=== PATIENT | female | born 1945 | race Caucasian/White ===

== ENCOUNTER 2016-03-23 12:21 | Inpatient (IN) | payer OTHER ==
[2016-03-23 14:03] LABS: BASO% 0.1 % (0.0-0.8); EOS# 0.01 X1000 (0.0-0.7); EOS% 0.1 % (0.0-10.0); HEMATOCRIT 24.4 % (37.0-47.0); HEMOGLOBIN 7.9 g/dL (12.0-16.0); IMM GRAN# 0.02 X1000 (0.0-0.04); IMM GRAN% 0.2 % (0.0-0.5); LYMPH# 0.15 X1000 (1.2-3.4); LYMPH% 1.2 % (20.5-51.1); MCH 31.7 PG (27-31); MCHC 32.4 g/dL (33-37); MONO# 0.45 X1000 (0.11-0.59); MONO% 3.5 % (1.7-9.3); MPV 10.2 FL (7.4-10.4); NEUT% 94.9 % (42.2-75.2); PLT 229 X1000 (130-400); RBC 2.49 XMIL (4.2-5.4)
[2016-03-23 14:04] LABS: MANUAL DIFF NEEDED? NO
--- NOTE | 2016-03-23 14:17 | PROVIDER DOCUMENTATION ---
HPI-General Adult - General Chief Complaint: Shortness of Breath Stated Complaint: SOB Time Seen by Provider: 03/23/16 12:50 Source: patient, family Allergies/Adverse Reactions: Patient Allergies Allergy/AdvReac Type Severity Reaction Status Date / Time celecoxib [From Celebrex] Allergy HIVES Verified 03/23/16 13:27 Home Medications: Calcium Carb/Vit D3/Minerals [Calcium 1,200 mg Tablet Chew] 1 each PO DAILY 10/29 Cholecalciferol (Vitamin D3) [Vitamin D3] 2,000 unit PO DAILY 05/23/13 Citalopram [Celexa] 20 mg PO DAILY 05/23/13 Digoxin [Lanoxin] 125 mcg PO DIRECTED 05/23/13 Spironolactone 25 mg PO QHS 05/23/13 Carvedilol 12.5 mg PO BID 02/09/14 Pitavastatin [Livalo] 2 mg PO DAILY 02/09/14 Ranolazine E.r. [Ranexa] 500 mg PO BID 02/09/14 Cyanocobalamin (Vitamin B-12) [Vitamin B-12] 1,000 mcg PO DIRECTED 04/28/15 Potassium Chloride 20 meq PO DAILY 04/28/15 Sacubitril/Valsartan [Entresto 24 mg-26 mg Tablet] 1 mg PO BID 05/27/15 - History of Present Illness -Gen Adult Nature of Presenting Problems: Pt had ICD placed a few weeks ago and initially did well but ultimately had large hemorrhage in operative site. Eloquis was discontinued and she has not been on anticoagulant therapy recently. She became lightheaded today and was sent to ER by her fringe knotter. Location of Pain/Injury: reports: upper body Pain Radiation: reports: no radiation Onset/Duration: reports: other (see HPI) Associated Symptoms: reports: denies symptoms Review of Systems - Adult - REVIEW OF SYSTEMS - ADULT Constitutional: reports: fatique Eyes: reports: no symptoms reported Ears, Nose, Mouth & Throat: reports: no symptoms reported Cardiovascular: reports: irregular heart rate, syncope, other (ICD) Respiratory: reports: cough, dyspnea on exertion Gastrointestinal: reports: no symptoms reported Musculoskeletal: reports: no symptoms reported Integumentary: reports: no symptoms reported Neurological: reports: no symptoms reported Psychiatric: reports: no symptoms reported Endocrine: reports: no symptoms reported Hematologic/Lymphatic: reports: no symptoms reported Allergic/Immunologic: reports: no symptoms reported Past History - Adult - PAST MEDICAL HISTORY-ADULT Major Childhood Illnesses: reports: denies history Cardiovascular: reports: cardiac disease, A-Fib, HTN, hyperlipidemia, pacemaker Psychiatric: reports: anxiety - PRIOR SURGERIES/PROCEDURES Surgical/Procedure History: reports: appendectomy, CABG, cardiac stent (x4), pacemaker (defib), tonsillectomy - IMMUNIZATION STATUS Childhood Immunizations: See Nurse Assessment Flu Vaccine: See Nurse Assessment - SOCIAL HISTORY Smoking: cigarettes, less than 1 pack/day Substance Use: none/never Living Situation: family Occupation: retired Physical Exam-General - CONSTITUTIONAL General Appearance: appears well - EYES Eyes: PERRL/EOMI, other (pale) - HEAD, EARS, NOSE, MOUTH & THROAT HENMT: normocephalic/atraumatic, moist mucous membranes - NECK Neck: full range of motion - RESPIRATORY Respiratory: lungs clear - CARDIOVASCULAR Cardiovascular: normal peripheral pulses, bradycardia - CHEST (BREASTS) Chest/Breast: mass/lump noted (very large hematomaa in perioperative site and left breast). negative: no masses/lumps, no tenderness Progress - PLAN OF CARE/RESULTS Progress/Plan/Lab Results: Laboratory Tests 03/23/16 13:45 WBC 12.92 H RBC 2.49 L Hgb 7.9 L Hct 24.4 L MCV 98.0 MCH 31.7 H MCHC 32.4 L RDW Std Deviation 13.6 Plt Count 229 MPV 10.2 Immature Gran % (Auto) 0.2 Neut % (Auto) 94.9 H Lymph % (Auto) 1.2 L [place] % (Auto) 3.5 Eos % (Auto) 0.1 Baso % (Auto) 0.1 Immature Gran # (Auto) 0.02 Neut # (Auto) 12.28 H Lymph # (Auto) 0.15 L [place] # (Auto) 0.45 Eos # (Auto) 0.01 Baso # (Auto) 0.01 Segmented Neutrophils Not Reportable Orders Category Date Time Status Transfuse .Give-Transfuse Care 03/23/16 14:06 Active CBC WITH ELECTRONIC DIFF [HEME] Stat Lab 03/23/16 13:45 Completed TYPE & SCREEN [BBK] Stat Lab 03/23/16 13:45 Received Vital Signs Temp Pulse Resp BP Pulse Ox 03/23/16 12:26 98.7 F 63 20 133/46 99 celecoxib [From Celebrex] Allergy (Verified 03/23/16 13:27) HIVES Calcium Carb/Vit D3/Minerals [Calcium 1,200 mg Tablet Chew] 1 each PO DAILY 10/29 Cholecalciferol (Vitamin D3) [Vitamin D3] 2,000 unit PO DAILY 05/23/13 Citalopram [Celexa] 20 mg PO DAILY 05/23/13 Digoxin [Lanoxin] 125 mcg PO DIRECTED 05/23/13 Spironolactone 25 mg PO QHS 05/23/13 Furosemide [Lasix] 40 mg PO BID #60 tablet 05/26/13 Carvedilol 12.5 mg PO BID 02/09/14 Pitavastatin [Livalo] 2 mg PO DAILY 02/09/14 Ranolazine E.r. [Ranexa] 500 mg PO BID 02/09/14 Warfarin [Coumadin] 7.5 mg PO DIRECTED #0 05/30/14 Cyanocobalamin (Vitamin B-12) [Vitamin B-12] 1,000 mcg PO DIRECTED 04/28/15 Potassium Chloride 20 meq PO DAILY 04/28/15 Hydrocodone/APAP 5 mg/325 mg [[place]-5] 1 each PO Q4H PRN #12 tablet 05/27/15 Sacubitril/Valsartan [Entresto 24 mg-26 mg Tablet] 1 mg PO BID 05/27/15 Hydrocodone/Acetaminophen [[place] 5-325 Tablet] 1 each PO Q6H PRN PRN #12 tablet 06/18/15 Laboratory 03/23/16 13:45 WBC 12.92 H RBC 2.49 L Hgb 7.9 L Hct 24.4 L MCV 98.0 MCH 31.7 H MCHC 32.4 L RDW Std Deviation 13.6 Plt Count 229 MPV 10.2 Immature Gran % (Auto) 0.2 Neut % (Auto) 94.9 H Lymph % (Auto) 1.2 L [place] % (Auto) 3.5 Eos % (Auto) 0.1 Baso % (Auto) 0.1 Immature Gran # (Auto) 0.02 Neut # (Auto) 12.28 H Lymph # (Auto) 0.15 L [place] # (Auto) 0.45 Eos # (Auto) 0.01 Baso # (Auto) 0.01 Segmented Neutrophils Not Reportable Departure - Departure Time of Disposition Order: 14:21 DIAGNOSIS: Anemia Disposition: ADMITTED INPATIENT 09 Certified Medical Emergency: Emergent Condition: Good
[2016-03-23 15:23] LABS: ALBUMIN 3.7 g/dL (3.5-5.0); CALCIUM 8.5 mg/dL (8.8-10.2); POTASSIUM 4.2 mmol/L (3.5-5.1); TOTAL BILIRUBIN 0.78 mg/dL (0.20-1.00); TOTAL PROTEIN 5.8 g/dL (6.3-8.3)
[2016-03-23] MEDS ORDERED: NON-FORMULARY MED (Cyanocobalamin (Vitamin B-12) [Vitamin B-12] 1,000 MCG) PO SCH (19:28)
[2016-03-23] MEDS ORDERED: ZOFRAN IV PRN (19:28)
--- NOTE | 2016-03-23 19:51 | HISTORY AND PHYSICAL ---
PRIMARY CARE PROVIDER: Dr. Fabián Shore. CHIEF COMPLAINT: Left chest hematoma with complaints of nausea, dizziness and weakness with shortness of breath this morning. HISTORY OF PRESENT ILLNESS: Ms Treviño is a 70-year-old female with a history of coronary artery disease status post CABG in , paroxysmal atrial fibrillation with a pacemaker placed, she has had 3 generator changes, history of congestive heart failure. On 02/21/2016 Ms. Treviño had a generator change by Dr. Mejia Batista located at [facility] in [place]. There were no complications from the procedure. She was resumed on her Eliquis 3 or 4 days after surgery as routinely done. Then again on March 14 she developed a huge hematoma returned to [facility], they ruled out infection, they had pressure held for 3 days with a pressure dressing. She does have skin tears that are healing from the pressure dressing tape, they said the swelling went down quite a bit. On 03/18/2016 she was discharged. She never received blood while during her stay at [facility]. She and her went to see Dr. aBtista in the office yesterday and there were no changes to her medications and then this morning she woke up nauseated, dizzy and weak with shortness of breath. She never passed out and Dr. Batsita told them to come to the most local hospital given the risk of with bad weather outside. Workup revealed a hemoglobin and hematocrit of 7.[address] Batista discussed the patient's status with the physician in the ER and the decision was made to give 2 packed red blood cells and so will keep her for observation for that. Dr. Batista also said not to explore the hematoma. During assessment I measured the hematoma at 6 x 8 inches and used a skin marker to draw a salt river around the hematoma edges. She is still off of Eliquis and has been off Eliquis since February so DVT prophylaxis will only be with SCDs. PAST MEDICAL HISTORY: Coronary artery disease, paroxysmal atrial fibrillation with pacemaker and anticoagulation therapy, congestive heart failure, uterine and vulva cancer, diabetes type 2. SURGICAL HISTORY: CABG in 1990, tonsillectomy, appendectomy, pacemaker implantation with 3 generator changes with the most recent 1 being 02/21/2016 and cardiac stenting x4. SOCIAL HISTORY: Quit smoking in 1987, smoked 1-2 packs of cigarette per day for 20+ years. Denies alcohol or illicit drug use. Lives at home with her . FAMILY HISTORY: Positive for lung cancer, coronary artery disease. ALLERGIES: CELEBREX. HOME MEDICATIONS: Calcium carbonate, vitamin D3 minerals 1 tab daily, Celexa 20 mg p.o. daily, vitamin D3 2000 units p.o. daily, digoxin 125 mcg p.o. daily, Coreg 12.5 mg p.o. twice daily, 2 mg p.o. daily, Ranexa 500 mg p.o. twice daily, vitamin B12 1000 mcg, Entresto valsartan 1 mg p.o. twice daily, Lasix 40 mg p.o. twice daily. REVIEW OF SYSTEMS: Fourteen-point review of systems were complete and all were negative except for those mentioned above HPI. LABORATORY DATA: White blood cells 12,000, hemoglobin 7.8, hematocrit 24.4, platelet count 229,000. Sodium 130, potassium 4.2, BUN 19, creatinine is 1.6, glucose 185, calcium 8.5, total bilirubin 0.78, AST 19, ALT 7, total protein 5.8. IMAGING: None. PHYSICAL EXAMINATION: VITAL SIGNS: Temperature 98.7 degrees, heart rate 60 paced, respiratory rate 21, blood pressure 119/53, O2 saturation 100% on room air, 5 feet 3 inches tall, 165 pounds, BMI 29.2. GENERAL: Ms Treviño is a 70-year-old female no acute distress. Able to answer all questions appropriately. HEENT: Atraumatic, normocephalic. Pupils equal, round, reactive to light. Extraocular movements intact. CARDIOVASCULAR AND CHEST: Irregularly irregular rate, no rubs, gallops or murmurs. There is a large 6 x 8 inch hematoma over the left chest pacemaker site. PULMONARY: Clear to auscultate. Bilateral breath sounds. No accessory muscle use or work of breathing noted. GI: Soft, nontender, nondistended. Positive bowel sounds x4. NEURO: A and O x4. Moves all extremities equally. EXTREMITIES: No edema noted, +2 dorsalis and radial pulses. SKIN: Warm, dry, intact except for skin tear between her breasts where she had pressure dressing tape. There is a 6 x 8 inch hematoma over left chest pacemaker site with bruising in different stages and bruising down the left inner aspect of her arm. ASSESSMENT AND PLAN: 1. Left acute blood loss anemia secondary to hematoma post permanent pacemaker generator change, hemoglobin, hematocrit 7.9 and 24.4, blood transfusion was discussed between her power engineer who did the generator change, Dr. Batista and the ER physician and 2 units of blood was ordered for transfusion. Will repeat hemoglobin, hematocrit in the morning. Continue to hold anticoagulant. 2. Left chest hematoma 6 x 8 inches large. Will do chest CT to evaluate. Apparently per Dr. Lam the left subclavian hematoma is to not be explored surgically. 3. Coronary artery disease status post coronary artery bypass graft with stents currently on hold with anticoagulant. Will continue with her beta oneil. 4. Congestive heart failure. Continue digitalis, beta oneil. Continue home medications. 5. Paroxysmal atrial fibrillation holding on anticoagulation. Rate is controlled. 6. Diabetes type 2. Will do pattern blood glucoses and insulin per low-dose protocol. 7. Deep venous thrombosis prophylaxis. SCDs. 8. Gastrointestinal prophylaxis. Proton pump inhibitor. Dictated by LANNY Bales for Derrick Kay MD
[2016-03-23] MEDS: TYLENOL PO PRN (20:32)
[2016-03-23] MEDS: LASIX PO SCH (20:32)
[2016-03-23] MEDS: RANEXA PO SCH (20:32)
[2016-03-23] MEDS: COREG PO SCH (20:33)
[2016-03-23] MEDS ORDERED: NS 500 ML ONE (20:43)
[2016-03-23] MEDS: HUMULIN R SUBQ SCH (22:56)
[2016-03-23] MEDS: ENTRESTO 24 MG-26 MG TABLET PO SCH (23:08)
[2016-03-24] MEDS: TYLENOL PO PRN ×3 (02:05→20:33)
[2016-03-24] MEDS: PRILOSEC PO SCH (06:03)
[2016-03-24] MEDS: HUMULIN R SUBQ SCH ×4 (06:20→21:37)
[2016-03-24 07:02] LABS: INR 1.09; PROTIME 11.6 Seconds (9.2-11.7); PTT 25.1 Seconds (22.0-36.0)
[2016-03-24 07:06] LABS: ALBUMIN 3.4 g/dL (3.5-5.0); CALCIUM 8.6 mg/dL (8.8-10.2); MAGNESIUM 2.1 mg/dL (1.5-2.7); POTASSIUM 3.5 mmol/L (3.5-5.1); TOTAL BILIRUBIN 0.91 mg/dL (0.20-1.00); TOTAL PROTEIN 5.7 g/dL (6.3-8.3)
[2016-03-24 07:15] LABS: BASO% 0.2 % (0.0-0.8); EOS# 0.01 X1000 (0.0-0.7); EOS% 0.1 % (0.0-10.0); HEMATOCRIT 30.1 % (37.0-47.0); HEMOGLOBIN 9.8 g/dL (12.0-16.0); IMM GRAN# 0.06 X1000 (0.0-0.04); IMM GRAN% 0.6 % (0.0-0.5); LYMPH# 0.34 X1000 (1.2-3.4); LYMPH% 3.3 % (20.5-51.1); MANUAL DIFF NEEDED? YES; MCH 30.4 PG (27-31); MCHC 32.6 g/dL (33-37); MCV 93.5 FL (81-99); MONO# 0.64 X1000 (0.11-0.59); MONO% 6.3 % (1.7-9.3); MPV 10.2 FL (7.4-10.4); NEUT% 89.5 % (42.2-75.2); PLT 215 X1000 (130-400); RBC 3.22 XMIL (4.2-5.4)
[2016-03-24 07:24] LABS: BANDS 4 % (0-1); LYMPHS 7 % (21-51); MONO 9 % (1-9)
[2016-03-24] MEDS: OSCAL 500 + D PO SCH (10:16)
[2016-03-24] MEDS: ENTRESTO 24 MG-26 MG TABLET PO SCH ×2 (10:16→20:32)
[2016-03-24] MEDS: COREG PO SCH ×2 (10:16→20:32)
[2016-03-24] MEDS: LIVALO PO SCH (10:16)
[2016-03-24] MEDS: LASIX PO SCH ×2 (10:16→20:32)
[2016-03-24] MEDS: CELEXA PO SCH (10:16)
[2016-03-24] MEDS: VITAMIN D PO SCH (10:17)
[2016-03-24] MEDS: RANEXA PO SCH ×2 (10:17→20:32)
[2016-03-24 10:44] LABS: IRON SATURATION 7 %; TIBC 255 ug/dL; TOTAL IRON 18 ug/dL (49-151); UNBOUND IRON 237 ug/dL (112-346)
--- NOTE | 2016-03-24 12:36 | Diag Imaging Result Document ---
PROCEDURE NAME: CHEST-2 VIEWS - 03/24/2016 PA AND LATERAL RADIOGRAPH OF THE CHEST: COMPARISON: 06/18/2015. FINDINGS: The lungs appear grossly clear. No large effusion is identified. There is minimal blunting of the posterior costophrenic angles which could indicate a trace effusion. Cardiac silhouette is mildly prominent. Median sternotomy wires are noted. There is a stable implanted defibrillator/pacemaker on the left. IMPRESSION: Stable cardiomegaly and questionable trace effusions at the posterior costophrenic angles.
[2016-03-24] MEDS ORDERED: VENOFER IV ONE (14:38)
[2016-03-24] MEDS ORDERED: VENOFER 200 MG in NS 150 ML IV ONE (16:00)
--- NOTE | 2016-03-24 16:15 | PROGRESS NOTE ---
DATE: 03/24/2016 SUBJECTIVE: The patient is feeling fine, feeling more energetic and definitely not tired any more. OBJECTIVE: Vital signs: Temperature is 98.2, heart rate 59, respiratory rate 18, blood pressure 105/42, O2 saturation is 94% on room air. General: This is a 70-year-old female lying in bed, in no acute distress. HEENT: Head is normocephalic and atraumatic. Anicteric sclerae. Pale conjunctivae. Neck: Supple. No JVD noted. No carotid bruit. No lymphadenopathy. Cardiovascular: Regular rate and rhythm. There is a large 6 to 8 inch hematoma over the left chest in the pacemaker site and no murmurs or rubs. Pulmonary: Clear bilaterally to auscultation. No work of breathing or using accessory muscles. Abdomen: Soft, nontender. Bowel sounds present. No organomegaly. Extremities: No cyanosis, clubbing or edema. Peripheral pulses present. Neurologic: The patient is alert and oriented x3, able to move all 4 extremities. Cranial nerves II through XII grossly normal. DIAGNOSTIC DATA: White blood cell count 10.18, hemoglobin 9.8, hematocrit 30.1, platelets 215. BMP is unremarkable except for creatinine of 1.9. ASSESSMENT AND PLAN: 1. Anemia of blood loss, most likely secondary to hematoma in the thoracic wall. The patient has received 2 units of blood, and hemoglobin is now 9.8. I think that is the reason this patient has anemia. I discussed with Cardiology, and he does not recommend any drainage because of the high risk of infection. At this time, we are waiting for results of old records from the hospital to see what CT of the chest wall and ultrasound of the soft tissue shows. 2. Coronary artery disease. The patient is not complaining of any chest pain. 3. Congestive heart failure, stable. The patient is not having any exacerbation. Aware. We are going to continue with the same home medications. 4. Paroxysmal atrial fibrillation. Rate is controlled. 5. Diabetes type 2. The patient is on sliding scale insulin. Overall this patient is doing good, and we have ordered some iron studies that revealed low iron. At this time, we are going to provide 1 dose of Venofer 200 mg IV, and we have ordered also occult blood stool test. After this patient has this medication transfused and this exam returns negative, we may discharge the patient tomorrow.
[2016-03-24 21:28] LABS: URINE CULTURE NEEDED? NO; URINE MICRO REVIEW NEEDED? NO; URINE SOURCE CLEAN CATCH
[2016-03-24 21:32] LABS: BILIRUBIN URINE NEGATIVE (NEGATIVE); BLOOD URINE SMALL (NEGATIVE); COLOR YELLOW; GLUCOSE URINE NEGATIVE (NEGATIVE); LEUKOCYTES URINE NEGATIVE (NEGATIVE); NITRITE URINE NEGATIVE (NEGATIVE); PH URINE 5.5; PROTEIN URINE TRACE mg/dL (NEGATIVE); SP GRAVITY URINE 1.013; TURBIDITY URINE HAZY (CLEAR); UROBILINOGEN URINE NORMAL (NORMAL)
[2016-03-24 21:34] LABS: UR EPITHELIAL CELLS <10 /HPF (<10); URINE BACTERIA NEGATIVE /HPF; URINE RBC <10 /HPF (<10); URINE WBC <10 /HPF (<10)
[2016-03-25] MEDS: TYLENOL PO PRN (04:53)
[2016-03-25] MEDS: HUMULIN R SUBQ SCH ×2 (06:06→11:40)
[2016-03-25] MEDS: PRILOSEC PO SCH (06:07)
[2016-03-25 06:55] LABS: MANUAL DIFF NEEDED? NO
[2016-03-25 07:04] LABS: BASO% 0.3 % (0.0-0.8); EOS# 0.13 X1000 (0.0-0.7); HEMATOCRIT 32.7 % (37.0-47.0); HEMOGLOBIN 10.5 g/dL (12.0-16.0); IMM GRAN# 0.04 X1000 (0.0-0.04); IMM GRAN% 0.6 % (0.0-0.5); LYMPH# 0.42 X1000 (1.2-3.4); LYMPH% 6.5 % (20.5-51.1); MCHC 32.1 g/dL (33-37); MCV 93.4 FL (81-99); MONO# 0.69 X1000 (0.11-0.59); MONO% 10.7 % (1.7-9.3); MPV 10.4 FL (7.4-10.4); NEUT% 79.9 % (42.2-75.2); PLT 197 X1000 (130-400)
[2016-03-25 07:24] LABS: ALBUMIN 3.3 g/dL (3.5-5.0); CALCIUM 8.5 mg/dL (8.8-10.2); MAGNESIUM 2.1 mg/dL (1.5-2.7); POTASSIUM 3.3 mmol/L (3.5-5.1); TOTAL BILIRUBIN 0.8 mg/dL (0.20-1.00); TOTAL PROTEIN 5.6 g/dL (6.3-8.3)
[2016-03-25 08:28] VITALS: BP 125/57
[2016-03-25] MEDS ORDERED: KLOR-CON PO ONE (08:35)
[2016-03-25] MEDS: RANEXA PO SCH (08:43)
[2016-03-25] MEDS: LIVALO PO SCH (08:43)
[2016-03-25] MEDS: ENTRESTO 24 MG-26 MG TABLET PO SCH (08:43)
[2016-03-25] MEDS: OSCAL 500 + D PO SCH (08:43)
[2016-03-25] MEDS: COREG PO SCH (08:43)
[2016-03-25] MEDS: VITAMIN D PO SCH (08:44)
[2016-03-25] MEDS: CELEXA PO SCH (08:44)
[2016-03-25] MEDS: LASIX PO SCH (08:44)
--- NOTE | 2016-03-25 12:51 | DISCHARGE SUMMARY ---
ADMISSION DATE: 03/23/2016 DISCHARGE DATE: 03/25/2016 DISCHARGE DIAGNOSES: 1. Anemia of acute blood loss secondary to hematoma post permanent pacemaker generator replacement. 2. Left chest hematoma. 3. Congestive heart failure, stable. 4. Paroxysmal atrial fibrillation, stable. 5. Diabetes mellitus type 2, stable. CONSULTATIONS: None. PROCEDURES: Chest x-ray showed stable cardiomegaly and questionable trace effusions on the posterior costophrenic angle. HOSPITAL COURSE: This is a 70-year-old female with history of coronary artery disease, status post CABG in 1990, paroxysmal atrial fibrillation. Patient reports that on 02/21/2016 she went to see her data analysis manager in [place], Dr. Mejia Batista at [facility]. After she got a pacemaker placement, she was resumed on Eliquis and there were no complications during the procedure but at the end of February she developed huge hematoma, returned to [facility] and they ruled out infection, and she was kept approximately 3 days there and she was discharged. Today, she came to the emergency department because she was feeling weak and dizzy. She was found to have a hemoglobin of 7.8. Checked with data analysis manager and he recommends considering her comorbidities transfusion of blood and he does not recommend to have any draining of hematoma for the high risk of infection of the pacemaker. We have ordered anemia panel which basically shows iron deficiency anemia which of course is explainable because of this hematoma. Patient received 3 units of blood and Venofer 200 mg IV 1 dose. Patient is feeling completely fine. Just to rule out any GI origin of anemia, we ordered occult blood test which returned positive. Considering that this patient is stable, she is not having any signs of overt GI bleeding, we prefer to send this patient home and have primary care physician to give referral for GI evaluation as an outpatient. Patient is doing fine and being discharged in stable condition. DISCHARGE PHYSICAL EXAMINATION: Vital Signs: Temperature 97.8 degrees, heart rate 80, respiratory rate 18, blood pressure 125/57 O2 saturation 97% on room air. General: This is a 70-year-old female lying in bed in no acute distress. HEENT: Head is normocephalic, atraumatic. Anicteric sclerae and pale conjunctivae. Mucous membranes moist. Neck: Supple. No JVD noted. No carotid bruits. No lymphadenopathy. No thyromegaly. Cardiovascular: S1, S2 heard. Irregularly irregular heart rate. No murmurs, gallops, or rubs. Respiratory: Clear bilaterally to auscultation. No work of breathing or using accessory muscles. Abdomen: Soft, nontender to palpation. Bowel sounds present. No organomegaly. Extremities: No clubbing, cyanosis, or edema. Peripheral pulses present in both legs. Neurological: Patient is alert and oriented x3. Able to move her extremities. Cranial nerves II through XII grossly normal. Skin: In the thoracic wall it is noted a 6 x 8 inches hematoma over the left chest pacemaker that is basically unchanged since admission. DISCHARGE DISPOSITION: To home to self-care. FOLLOW UP: 1. Primary care physician, Dr. Grimm, in 1 week. 2. Follow up with primary data analysis manager as scheduled already. DISCHARGE MEDICATIONS: We have not made any changes to her current treatment. 1. Carvedilol 12.5 mg 1 tablet p.o. b.i.d. 2. Vitamin D3 2000 units p.o. daily. 3. Celexa 20 mg 1 tablet p.o. daily. 4. Vitamin B12 1000 mcg 1 tablet p.o. daily. 5. Digoxin 125 mcg p.o. daily. 6. Lasix 40 mg 1 tablet p.o. b.i.d. 7. Pitavastatin 2 mg 1 tablet p.o. daily. 8. Ranexa 500 mg 1 tablet p.o. b.i.d. 9. Entresto 24-26 mg 1 tablet p.o. b.i.d. 10. Calcium carbonate/vitamin D3 1 tablet p.o. daily.
--- NOTE | 2016-03-26 06:03 | EKG Report ---
Test Performed on : 03/24/2016 09:24:29 AM Test Reason : chest pain Blood Pressure : / mmHG Vent. Rate : 060 BPM Atrial Rate : 060 BPM P-R Int : 202 ms QRS Dur : 168 ms QT Int : 474 ms P-R-T Axes : 058 -11 -05 degrees QTc Int : 474 ms AV dual-paced rhythm Abnormal ECG When compared with ECG of 23-MAR-2016 12:27, (Unconfirmed) Vent. rate has decreased BY 6 BPM Confirmed by Mateo Xiao DO ([id number]) on 03/27/2016 7:47:23 AM
--- NOTE | 2016-03-26 08:01 | EKG Report ---
Test Performed on : 03/23/2016 12:27:57 PM Test Reason : Done in ED/No order in [employer] Blood Pressure : / mmHG Vent. Rate : 066 BPM Atrial Rate : 066 BPM P-R Int : 122 ms QRS Dur : 164 ms QT Int : 470 ms P-R-T Axes : 007 035 051 degrees QTc Int : 492 ms Atrial-sensed ventricular-paced rhythm Abnormal ECG When compared with ECG of 13-MAR-2015 21:50, Vent. rate has decreased BY 4 BPM Unconfirmed Result
[2016-03-26] MEDS ORDERED: LANOXIN PO SCH (09:00)
== END 2016-03-25 13:50 | disposition home or self-care (01) | DRG 812 ==
LOC: ED 12:21 → 3N 18:50
PROVIDERS: ATTEND Internal Medicine
PROC: 30233N1 Transfusion of Nonautologous Red Blood Cells into Peripheral Vein, Percutaneous Approach (ICD-10-PCS; principal; 2016-03-23)
DX: D62 Acute posthemorrhagic anemia (principal); I48.0 Paroxysmal atrial fibrillation; E11.9 Type 2 diabetes mellitus without complications; L76.32 Postprocedural hematoma of skin and subcutaneous tissue following other procedure; I25.10 Atherosclerotic heart disease of native coronary artery without angina pectoris; R19.5 Other fecal abnormalities; Z79.899 Other long term (current) drug therapy; Z87.891 Personal history of nicotine dependence; Z85.42 Personal history of malignant neoplasm of other parts of uterus; Z95.1 Presence of aortocoronary bypass graft; Z95.5 Presence of coronary angioplasty implant and graft; Z95.0 Presence of cardiac pacemaker; Z82.49 Family history of ischemic heart disease and other diseases of the circulatory system; Z80.1 Family history of malignant neoplasm of trachea, bronchus and lung
CPT/HCPCS: 71020; 80053; 81001; 82270; 82607; 82728; 82746; 82948; 83036; 83540; 83550; 83735; 84100; 85025; 85610; 85730; 86850; 86900; 86901; 86920; 87324; 87449; 93005; 93010; 99284; J1756; J2405; J7040; P9016

== ENCOUNTER 2018-07-24 12:41 | Inpatient (IN) ==
[2018-07-24 13:06] LABS: BASO# 0.03 X1000 (0.0-0.2); BASO% 0.6 % (0.0-0.8); EOS# 0.05 X1000 (0.0-0.7); HEMOGLOBIN 12.8 g/dL (12.0-16.0); IMM GRAN# 0.03 X1000 (0.0-0.04); IMM GRAN% 0.6 % (0.0-0.5); LYMPH# 0.52 X1000 (1.2-3.4); LYMPH% 10.6 % (20.5-51.1); MCH 29.8 PG (27-31); MCHC 32.8 g/dL (33-37); MCV 90.9 FL (81-99); MONO# 0.39 X1000 (0.11-0.59); MONO% 7.9 % (1.7-9.3); NEUT# 3.89 X1000 (1.4-6.5); NEUT% 79.3 % (42.2-75.2); PLT 196 X1000 (130-400); RBC 4.29 XMIL (4.2-5.4); RDW 16.9 % (11.5-14.5); WBC 4.91 X1000 (4.8-10.8)
[2018-07-24 13:16] LABS: INR 1.61; PROTIME 20.4 Seconds (11.0-16.0)
[2018-07-24 13:17] LABS: PTT 34.1 Seconds (22.3-41.8)
[2018-07-24 13:27] LABS: ALB/GLOB RATIO 1.1; ALBUMIN 3.3 g/dL (3.5-5.0); CALCIUM 8.8 mg/dL (8.8-10.2); CREATININE 1.1 mg/dL (0.5-0.9); POTASSIUM 4.3 mmol/L (3.5-5.1); TOTAL BILIRUBIN 0.54 mg/dL (0.20-1.00); TOTAL PROTEIN 6.3 g/dL (6.3-8.3)
--- NOTE | 2018-07-24 13:35 | Diag Imaging Result Doc PS360 ---
CT HEAD W/O CONTRAST - 07/24/2018 INDICATION: seizure COMPARISON: 02/16/2018 FINDINGS: There is stable mild cerebral atrophy and periventricular white matter chronic microvascular disease. No intracranial mass or hemorrhage. The skull is intact. The sinuses, mastoids, and middle ears are clear. IMPRESSION: No acute disease or change from prior. This exam was performed using automated exposure control, adjustment of mA or kV according to patient size, and/or use of iterative reconstruction technique Electronically signed by Tam Venegas 07/24/2018 1:33 PM
--- NOTE | 2018-07-24 13:42 | Diag Imaging Result Doc PS360 ---
EXAM: CHEST-2 VIEWS HISTORY: chest pain TECHNIQUE: Chest two views 06/18/2018 COMPARISON: None. FINDINGS: The lungs are hyperexpanded. The heart remains enlarged. Irregular opacity/infiltrate in the mid right lung is unchanged. There are sternal wires and left-sided pacemaker. No pleural effusions. IMPRESSION: Stable chest. Electronically signed by Higinio Serrano 07/24/2018 1:40 PM
[2018-07-24] MEDS ORDERED: ZOFRAN IV ONE (14:22)
--- NOTE | 2018-07-24 14:42 | PROVIDER DOCUMENTATION ---
This chart was entered by Alyce Estrada Scribe, acting as scribe for Troy Morales MD. HPI-Neurological Disorder - General Chief Complaint: Syncope Stated Complaint: seizure like activity, chest pain post cpr Time Seen by Provider: 07/24/18 13:02 Source: family Allergies/Adverse Reactions: Patient Allergies Allergy/AdvReac Type Severity Reaction Status Date / Time celecoxib [From Celebrex] Allergy HIVES Verified 02/16/18 21:10 Home Medications: Home Medication List Medication Instructions Recorded Confirmed Last Taken Type Apixaban [Eliquis] 5 mg PO BID 01/03/17 07/24/18 Unknown History Furosemide [Lasix] 40 mg PO BID 03/27/17 07/24/18 Unknown History Potassium Chloride 1 tab PO HS 03/27/17 07/24/18 Unknown History Carvedilol [Coreg] 6.25 mg PO BID 10/06/17 07/24/18 Unknown History Desvenlafaxine Succinate 100 mg PO DAILY 02/16/18 06/18/18 Unknown History [Desvenlafaxine Succinate ER] Oxycodone/APAP 10 mg/325 mg 1 each PO TID 02/16/18 07/24/18 Unknown History [Percocet-10] Bupropion HCl [Wellbutrin Xl] 150 mg PO BID 07/24/18 07/24/18 Unknown History Calcium Carbonate [Calcium] 1,200 mg PO DAILY 07/24/18 07/24/18 Unknown History Cholecalciferol (Vitamin D3) 2,000 unit PO 07/24/18 Unknown History [Vitamin D3] Cyclobenzaprine [Flexeril] 10 mg PO BID 07/24/18 07/24/18 Unknown History Levofloxacin 1 tab PO DAILY 07/24/18 07/24/18 Unknown History Minocycline HCl 100 mg PO Q12H 07/24/18 07/24/18 Unknown History [place]-3 Fatty Acids/Fish Oil [Fish 2,000 mg PO DAILY 07/24/18 07/24/18 Unknown History Oil 1,000 mg Capsule] Pitavastatin Calcium [Livalo] 1 tab PO DAILY 07/24/18 07/24/18 Unknown History Sacubitril/Valsartan [Entresto 24 1 tab PO BID 07/24/18 07/24/18 Unknown History mg-26 mg Tablet] - History of Present Illness-Neuro Nature of Presenting Problem: Patient is a 72 year old female who presents to the ED via EMS with seizure activity. Family states patient had generalized jerking. Denies history of seizures. states after the seizure the home health nurse could not get a pulse so they started chest compression and patient became responsive shortly after. Patient states chest wall pain. Severity: reports: mild Onset/Duration: reports: just prior to arrival Timing: reports: gone now Context: reports: seizure activity Associated Symptoms: reports: denies symptoms Similar Symptoms Previously?: No Recently seen or treated by another doctor?: No - Seizure First time to have a seizure?: Yes Witnessed seizure?: Yes How many seizure episodes?: 1 Episode details: reports: unknown duration Episode Frequency: no prior episodes Character of Seizure: reports: generalized shaking all over, incontinent of urine, stopped breathing Review of Systems - Adult - REVIEW OF SYSTEMS - ADULT Constitutional: reports: no symptoms reported. denies: chills, fever, fatique Eyes: reports: no symptoms reported Ears, Nose, Mouth & Throat: reports: no symptoms reported Cardiovascular: reports: no symptoms reported Respiratory: reports: no symptoms reported Gastrointestinal: reports: no symptoms reported Genitourinary: reports: no symptoms reported Musculoskeletal: reports: see HPI, other (chest wall pain). denies: back pain, muscle aches, neck pain Integumentary: reports: no symptoms reported Neurological: reports: see HPI, seizure. denies: dizziness/vertigo, headache/migraines, numbness, syncope Psychiatric: reports: no symptoms reported Endocrine: reports: no symptoms reported Hematologic/Lymphatic: reports: no symptoms reported Allergic/Immunologic: reports: no symptoms reported All Other Systems: Reviewed and Negative Past History - Adult - PAST MEDICAL HISTORY-ADULT Review of Records: reports: Nursing Assessment Review, Medications Reviewed, Social history reviewed & non-contributory. Major Childhood Illnesses: reports: denies history Cardiovascular: reports: cardiac disease, A-Fib, CHF, HTN, hyperlipidemia, pacemaker Respiratory: reports: denies history Gastrointestinal: reports: denies history Obstetrical/Gynecological: reports: denies history Genitourinary: reports: denies history Musculoskeletal: reports: denies history Neurological: reports: denies history Psychiatric: reports: anxiety Endocrine/Immune: reports: denies history Other Conditions: reports: denies history - PRIOR SURGERIES/PROCEDURES Surgical/Procedure History: reports: appendectomy, CABG, cardiac stent (x4), pacemaker (defib), tonsillectomy - IMMUNIZATION STATUS Childhood Immunizations: See Nurse Assessment Flu Vaccine: See Nurse Assessment - FAMILY HISTORY Family History: reviewed, not pertinent - SOCIAL HISTORY Smoking: denies Substance Use: denies Living Situation: family Physical Exam- Neurological - Physical Exam-Neuro Initial Vital Signs Reviewed: Yes General Appearance: alert, no apparent distress. negative: lethargic Eye Exam: bilateral eye: normal inspection, PERRL, EOMI HENMT: normal ENT inspection. negative: angioedema, hearing deficit Head Injury: no evidence of injury. negative: ecchymosis, lacerations Neck: non-tender, normal inspection. negative: limited range of motion Respiratory: lungs clear, normal breath sounds, other (chest wall tenderness). negative: rhonchi, stridor Cardiovascular: normal peripheral pulses, regular rate, rhythm. negative: tachycardia, systolic murmur Abdominal Exam: normal bowel sounds, non tender, soft. negative: guarding, rebound Extremity: non-tender, normal inspection. 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 negative: facial droop Neurologic: grossly normal. negative: aphasia, facial droop Integumentary: normal color, normal turgor, warm/dry. negative: cyanosis, ecchymosis, erythema Psych/Mental Status: normal mood/affect, oriented x 3. negative: anxious Progress - PLAN OF CARE/RESULTS Progress/Plan/Lab Results: Vital Signs - 8 hr 07/24/18 12:44 Temperature 97.7 F Pulse Rate 64 Respiratory Rate 22 Blood Pressure 135/77 O2 Sat by Pulse Oximetry 95 Laboratory Results - last 24 hr 07/24/18 07/24/18 07/24/18 12:58 12:58 12:58 WBC 4.91 RBC 4.29 Hgb 12.8 Hct 39.0 MCV 90.9 MCH 29.8 MCHC 32.8 L RDW Std Deviation 16.9 H Plt Count 196 MPV 11.0 H Immature Gran % (Auto) 0.6 H Neut % (Auto) 79.3 H Lymph % (Auto) 10.6 L Norman % (Auto) 7.9 Eos % (Auto) 1.0 Baso % (Auto) 0.6 Immature Gran # (Auto) 0.03 Neut # (Auto) 3.89 Lymph # (Auto) 0.52 L Norman # (Auto) 0.39 Eos # (Auto) 0.05 Baso # (Auto) 0.03 PT INR PTT (Actin FS) Sodium 137 Potassium 4.3 Chloride 98 Carbon Dioxide 26 Anion Gap 13 BUN 16 Creatinine 1.1 H Estimated GFR/1.73 m2 49 BUN/Creatinine Ratio 15 Glucose 148 H POC Glucose Calculated Osmolality 278 Calcium 8.8 Total Bilirubin 0.54 AST 15 ALT 9 L Alkaline Phosphatase 108 H Creatine Kinase 41 Troponin T Ely-G-Itieeatwavm Pept 1939 H Total Protein 6.3 Albumin 3.3 L Globulin 3.0 Albumin/Globulin Ratio 1.1 07/24/18 07/24/18 07/24/18 12:58 12:58 13:04 WBC RBC Hgb Hct MCV MCH MCHC RDW Std Deviation Plt Count MPV Immature Gran % (Auto) Neut % (Auto) Lymph % (Auto) Norman % (Auto) Eos % (Auto) Baso % (Auto) Immature Gran # (Auto) Neut # (Auto) Lymph # (Auto) Norman # (Auto) Eos # (Auto) Baso # (Auto) PT 20.4 H INR 1.61 PTT (Actin FS) 34.1 Sodium Potassium Chloride Carbon Dioxide Anion Gap BUN Creatinine Estimated GFR/1.73 m2 BUN/Creatinine Ratio Glucose POC Glucose 123 H Calculated Osmolality Calcium Total Bilirubin AST ALT Alkaline Phosphatase Creatine Kinase Troponin T < 0.010 Fls-C-Nlkh[place] Pept Total Protein Albumin Globulin Albumin/Globulin Ratio Orders Category Date Time Status Cardiac Monitoring DIRECTED Care 07/24/18 12:58 Active Oxygen Therapy- ED Nursing DIRECTED Care 07/24/18 12:58 Active Saline Loc NOW Care 07/24/18 12:58 Active CHEST-2 VIEWS [RAD] Stat Exams 07/24/18 12:[address] HEAD W/O CONTRAST [CT] Stat Exams 07/24/18 13:08 Completed CBC WITH ELECTRONIC DIFF [HEME] Stat Lab 07/24/18 12:58 Completed CK PROFILE [SP CHEM] Stat Lab 07/24/18 12:58 Completed COMPREHENSIVE METABOLIC PANEL [CHEM] Stat Lab 07/24/18 12:58 Completed PRO B-NATRIURETIC PEPTIDE Stat Lab 07/24/18 12:58 Completed PROTIME WITH INR [COAG] Stat Lab 07/24/18 12:58 Completed PTT [COAG] Stat Lab 07/24/18 12:58 Completed TROPONIN T Stat Lab 07/24/18 12:58 Completed Ondansetron [Zofran] Med 07/24/18 14:22 Discontinued 4 mg IV NOW ONE CP/SOB/Palp >45 yrs of Age Stat Oth 07/24/18 12:57 Ordered EKG [EKG] Stat Ther 07/24/18 12:58 Ordered Result Diagrams: 07/24/18 12:58 07/24/18 12:58 - EKG 1 Time of EKG reading by physician:: 12:51 EKG Read and Signed by:: Troy Morales EKG Interpretation (*Must complete 3 of following elements*): Abnormal Rate: 60 Rhythm: ventricular-paced rhythm Comments: abnormal ECG - XRAY 1 XRAY Study: Chest Impression: See EMR Report ( EXAM: CHEST-2 VIEWS HISTORY: chest pain TECHNIQUE: Chest two views 06/18/2018 COMPARISON: None. FINDINGS: The lungs are hyperexpanded. The heart remains enlarged. Irregular opacity/infiltrate in the mid right lung is unchanged. There are sternal wires and left-sided pacemaker. No pleural effusions. IMPRESSION: Stable chest. Electronically signed by Higinio Serrano 07/24/2018 1:40 PM 07/24/18 1340 Interpreting Physician: Higinio Serrano MD Dictated Date/Time: 07/24/18 1339 cc: Troy Morales MD; Fabián Shore MD) - CT/MRI 1 CT Study: Head Impression: See EMR Report ( CT HEAD W/O CONTRAST - 07/24/2018 INDICATION: seizure COMPARISON: 02/16/2018 FINDINGS: There is stable mild cerebral atrophy and periventricular white matter chronic microvascular disease. No intracranial mass or hemorrhage. The skull is intact. The sinuses, mastoids, and middle ears are clear. IMPRESSION: No acute disease or change from prior. This exam was performed using automated exposure control, adjustment of mA or kV according to patient size, and/or use of iterative reconstruction technique Electronically signed by Tam Venegas 07/24/2018 1:33 PM 07/24/18 1333 Interpreting Physician: Tam Venegas MD Dictated Date/Time: 07/24/18 1331 cc: Troy Morales MD; Fabián Shore MD) - CONSULTS/PCP/HOSPITALIST Notification #1 *Consult/PCP/Hospitalist*: LANNY Urias for Hospitalist Time Discussed: 14:41 (Dr. Velásquez accepted patient. ) Reason/Comments: Dr. Morales consulted with Bridgett about patient. Consult Disposition: Will see in ED, Admit Departure - Departure Date of Disposition Decision: 07/24/18 Time of Disposition Decision: 14:41 DIAGNOSIS: Seizure, CHF (congestive heart failure) Disposition: ADMITTED INPATIENT 09 Certified Medical Emergency: Emergent Condition: Stable Referrals and Follow-Ups: Fabián Shore MD [Primary Care Provider] - - Critical Care Note This patient required my direct & personal management of CC.: No Attestation - Physician/ RUDDY Attestation Patient care was provided by Advanced Practice Provider:: No The physician spent face to face time with patient:: Yes Advanced Practice Provider documentation review:: Supervising physician onsite and consulted in the evaluation and care of this patient. The physician did have a face to face encounter with the patient. This chart was documented by the indicated scribe, (Alyce Estrada Scribe) and accurately reflects the services I performed and decisions made by me, Troy Morales MD, as attested by the provider's signature.
--- NOTE | 2018-07-24 15:34 | EKG Report ---
Test Performed on : 07/24/2018 12:51:16 PM Test Reason : chest pain Blood Pressure : / mmHG Vent. Rate : 060 BPM Atrial Rate : 060 BPM P-R Int : 000 ms QRS Dur : 180 ms QT Int : 494 ms P-R-T Axes : 000 032 002 degrees QTc Int : 494 ms Ventricular-paced rhythm Abnormal ECG When compared with ECG of 18-JUN-2018 14:49, (Unconfirmed) No significant change was found Unconfirmed Result
[2018-07-24] MEDS ORDERED: ZOFRAN IV PRN (15:44)
[2018-07-24] MEDS ORDERED: ATIVAN IV PRN (15:44)
[2018-07-24 17:16] LABS: MAGNESIUM 2.2 mg/dL (1.5-2.7)
--- NOTE | 2018-07-24 18:21 | PROGRESS NOTE ---
DATE: 07/24/2018 This is a rtnw-pb-smbt encounter being done on Ms. Yessy Treviño. Ms. Treviño is a 72-year-old female who has a history of multiple medical conditions, including atrial fibrillation, congestive heart failure, hypertension, hyperlipidemia, pacemaker implantation. She was brought to the emergency room via EMS because of a possible seizure disorder. According to the ER records, the patient's stated after the seizure the patient's pulse could not be obtained, and as such, chest compression was initiated, and the patient became responsive shortly after. The patient is not able to related exactly what happened to her. CT scan of the brain done at the time of her presentation was unremarkable for any acute lesions. Her vital signs are stable. The patient's labs were reviewed. Her chest x-ray showed irregular opacity/infiltrate in the mid right lung. Our plan is to admit her to the unit. Maintain her on seizure precaution. Consult with Neurology regarding initiating antiepileptic treatment. Infiltrate noted on chest x-ray will be treated as pneumonia. All other medical conditions will be addressed accordingly. cc: Wilian Willingham MD
--- NOTE | 2018-07-24 18:29 | HISTORY AND PHYSICAL ---
FAMILY CARE PROVIDER: Fabián Padilla MD FAMILY CONSUMER SCIENTIST: Dr. Oconnor at [facility] in [place]. ORTHOPEDIST: Dr. Sesay in [place]. CHIEF COMPLAINT: Per at bedside, seizure with loss of bladder, brief CPR with compressions and rescue breathing, and per Home Health, they told him that she was shocked by her defibrillator. HISTORY OF PRESENT ILLNESS: Ms. Treviño is a 72-year-old female who carries a past medical history of coronary artery disease status post CABG in 1990, paroxysmal atrial fibrillation with a pacemaker placed. She has had this with 3 generator changes, the most recent being in 2016. It has also been replaced with a defibrillator. Congestive heart failure. She reports she had a fall back in December and she had surgeries with hardware to her left lower extremity and since that time, she has had problems with infections and wounds. She has been in and out of the hospital since that time and in and out of rehabilitation. Today the home health nurse came to change her bandage. She told her her legs were jerking. She has done this in the past when she has had a urinary tract infection. However, this time she went into a tonic- colonic seizure and went out and the way they described and for brief period of time quit breathing. Home health nurse, could not feel a pulse, so they did 3 to 4 rounds of chest compressions as well as 2 to 3 rounds of rescue breathing and at this time is when her defibrillator went off. This part was not witnessed by the . However, she came around, and she continued to be in a postictal state. Her last memory was having her bandage changed. She did not remember any preceding chest pain, shortness of breath, dizziness, or syncope feeling. In the ED, she had a head CT that does not show anything acute. Chest x-ray was stable. Her EKG showed a ventricular paced rhythm. We will admit her to [facility] for further evaluation and treatment for new onset seizure, as well as have Cardiology check her out, possibly interrogate her pacemaker to see if she really did have to be defibrillated. PAST MEDICAL HISTORY: 1. Coronary artery disease. 2. Paroxysmal atrial fibrillation with pacemaker. 3. Anticoagulation therapy. 4. Congestive heart failure. 5. Uterine and vulva cancer. 6. Diabetes mellitus, type 2. 7. Left leg injury with hardware. PAST SURGICAL HISTORY: 1. CABG in 1990. 2. Tonsillectomy. 3. Appendectomy. 4. Pacemaker implantation. She has had over 3 generator changes as well as a defibrillator now. 5. Cardiac stents x4. 6. Recent leg surgeries with some hardware removal and implantation of a pig bladder to institute healing. She is set for surgery again in 1 week for some more hardware removal. SOCIAL HISTORY: She quit smoking in 1997. She has smoked 1 to 2 packs of cigarettes per day for 20+ years. No alcohol or illicit drug use. Lives at home with her . She has home health come out once a week to change her bandage. FAMILY HISTORY: Positive for lung cancer, coronary artery disease. ALLERGIES: Celebrex. HOME MEDICATIONS: 1. Eliquis 5 mg p.o. b.i.d. 2. Wellbutrin XL 150 mg p.o. b.i.d. 3. Calcium carbonate 1200 mg p.o. daily. 4. Coreg 6.25 mg p.o. b.i.d. 5. Vitamin D3. 6. Flexeril 10 mg p.o. b.i.d. 7. Desvenlafaxine. 8. Levofloxacin 250 mg p.o. daily. 9. Minocycline p.o. q.12 h. 10. Fish oil 2000 mg p.o. daily. 11. Percocet 10 one each p.o. t.i.d. 12. Livalo 2 mg p.o. daily. 13. Potassium chloride 20 mEq p.o. at bedtime. 14. Entresto 24 mg/26 mg tablet 1 tablet p.o. b.i.d. REVIEW OF SYSTEMS: A 14 point review of systems was complete and negative except for those mentioned in HPI. PHYSICAL EXAMINATION: VITAL SIGNS: Temperature is 97.7 degrees, heart rate 64, respirations 22, blood pressure 135/77, O2 is 95% on room air. GENERAL: Ms. Treviño is a 72-year-old female, who is sitting up in the bed, in no acute distress. HEENT: Atraumatic, normocephalic. PERRL. NECK: Supple. Trachea midline. CARDIOVASCULAR: S1, S2 appreciated. No murmurs, gallops, rubs noted. RESPIRATORY: Lung sounds clear bilaterally. CHEST: She does have some chest tenderness where she did receive some CPR. EXTREMITIES: No lower extremity edema. Her right pedal pulse is palpable. No JVD. Her left extremity is wrapped in a bandage. GASTROINTESTINAL: Soft, nontender, nondistended. Positive bowel sounds 4 quadrants. NEUROLOGIC: Patient is awake, alert, oriented x4. Follows commands. Moves all extremities. No focal deficits noted. She was able to recall all events of the day up until her seizure. DIAGNOSTIC DATA: Chest x-ray: Stable. EKG: Ventricular paced at 60 beats per minute. Head CT: No acute disease or change from prior. We will order a urinalysis. CBC: White count 4, hemoglobin 12, hematocrit 39, platelet count is 196,000. Sodium 137, potassium 4.3, BUN 16, creatinine 1.1, blood glucose is 148, alkaline phosphatase 108. CK 41, troponin less than 0.010. ProBNP was 1939. ASSESSMENT AND PLAN: 1. New onset seizure. The patient did have loss of bladder control. Per , she reported that her legs initially started jerking. She remembers getting her leg bandaged by her home health nurse, and per her , she went out and was full tonic-clonic for an unknown period of time after her seizure. They felt that she was not breathing or had a pulse. CPR was initiated with rescue breathing, and they felt her defibrillator go off, and that time she came around and was in a postictal state. However, now she is bright, alert, oriented x4. Follows commands. Able answer all questions appropriately. Her head CT was negative. We will continue with frequent neurological checks and place her in the ICU overnight for close observation, and given her CPR, we will consult Cardiology to see if we can have her pacemaker interrogated. Follow up on an echocardiogram and continue to trend her cardiac enzymes. 2. Right lower extremity injury where she has had multiple surgeries and hardware placement as well as pig bladder to help with healing. She is on antibiotics with Levaquin and minocycline. We will continue with those. Continue with her daily dressing changes. Consult Wound Care. She did have her dressing changed today by home health. 3. Frequent urinary tract infections in the past where she has had some type of jerking with these episodes. However, she did not go out and not have any recollection or go full tonic- colonic. We will go ahead and check a urinalysis to see if we need to be treating a urinary tract infection. She denies any dysuria or frequency. 4. Coronary artery disease. We will continue home medications. 5. Atrial fibrillation with pacemaker. We will continue her anticoagulation therapy as well as her home medications. 6. Type 2 diabetes. We will continue with fingerstick blood sugars and sliding scale. 7. Congestive heart failure history. She does have a slightly elevated proBNP; however, she does not appear to be volume overloaded. Upon physical exam, she seemed somewhat dry. Her lung sounds are clear. We will continue to monitor. Further recommendation to follow physician evaluation and laboratory and diagnostic data. Dictated by LANNY Patel for Wilian Willingham MD cc: MD Fabián Angulo MD Michael Wilensky Dr. Su with Orthopedics Patient seen and evaluated by me. She is presenting with new onset seizure. She had brief CPR done prior to admission as attending home health Nurse could no obtain a pulse. She has LLE wound. Agree with the assessment and plan of the TEACHER DRAMATICS. Dr. Willingham. NABILA
--- NOTE | 2018-07-24 19:16 | CONSULTATION ---
DATE OF CONSULTATION: 07/24/2018 HISTORY OF PRESENT ILLNESS: Ms. Treviño is 72 years old and she had episode earlier with question of focal motor seizure involving the left leg, secondary generalized. History from the patient is that she was supine, having her left lower leg tended to by the home health nurse when there started some involuntary shaking of the left leg. This went on for a minute or so, and then she next realized ambulance personnel were checking on her. I do not have firsthand witness report available right now. Emergency room note states family reported generalized jerking. There was also report that pulse was not obtained and chest compressions were performed. Now, she reports chest soreness and she has no other complaints. She believes that she can move her left leg as well as before. She does not notice weakness in the left arm. She has not had any vision problems. She has not had headache. She did not bite her tongue. She did wet her pants. She reports an episode of generalized shaking for just a minute or so, without altered consciousness or altered awareness occurring approximately a year ago. She believes that was attributed to low blood pressure. Blood pressure medications were adjusted, and she has not had any more of those episodes. She reports episode today was distinctly different. She has not had previous seizure. She reports no history of diagnosed stroke. There is no history of serious head injury. She does not abuse ethanol. She had not recently stopped any medicines other than carvedilol. One of the medication lists includes bupropion and she does not recognize that by brand or generic name, and she is not sure she takes that. She stopped carvedilol, but that is still present on the list recorded here. I do not see anything on the list that would likely be associated with seizure other than the bupropion. She has oxycodone and has been using that in recent months with no abrupt changes in that. Workup includes noncontrast CT, reported unremarkable. Lab did not include urine drug screen. Chemistry shows mildly elevated blood sugars, creatinine 1.1, nothing else remarkable. She has been afebrile here. Heart rate has ranged 60s to 70s. Systolic blood pressures have ranged 120s to 150s. PHYSICAL EXAMINATION: On exam, Ms. Treviño is awake, alert, attentive, appropriate, cheerful, oriented. Speech is not dysarthric. Language function is intact. Memory is good. Head and neck are unremarkable. Visual randall are full, tested by confrontational finger counting. Extraocular movements are full. Facial motility is symmetric. Gag is intact. Tongue is midline. She can hear. Shoulder shrug is equal. Strength is normal in the arms and in the right leg. I can overcome the left foot plantar flexors and dorsiflexors, and there is some discomfort limiting her power there. She reports her current left lower leg power is baseline since her ankle fracture. Left ankle reflex was not tested. Right ankle reflex is 1+. Knee reflexes are 1+ bilaterally. Wrist reflexes are 1+ symmetrically. She did well on [id number]-[id number] testing bilaterally. She reports good pinprick and light touch appreciation over the toes bilaterally. Proprioception is good at the great toe MTP joint bilaterally. IMPRESSION AND PLAN: History from the patient and review of limited records is that she had left leg jerking followed by altered awareness, memory gap, possibly generalized seizure, associated urinary incontinence. If this is seizure, right hemisphere seems to be focus. I do not find anything in her history, imaging or exam to suggest significant right hemisphere lesion. I believe that she has a permanent pacemaker placed, so MRI will not be an option. I will order EEG for tomorrow morning. Further plans will depend on that report and on her clinical course. If she has another episode, I would start medicine for seizure control. Thanks for asking Neurology to see Ms. Treviño. cc: MD NABILA Gay III
--- NOTE | 2018-07-24 19:31 | CARDIOLOGY CONSULTATION ---
DATE: 07/24/2018 HISTORY OF PRESENT ILLNESS: Ms. Yessy Treviño is a 72-year-old lady who was having at home wound care done when she had an episode of what she describes as having jerking movements in her legs and subsequently she passed out. Apparently, the home health nurse gave CPR. Regardless, EMS was called and she was brought to the emergency room by EMS. She has significant cardiac history and her states likely that AICD fired as well. She is completely oriented now, has not had any seizure activity before. As far as the wound is concerned, she had a traumatic fracture last year of her hip and left lower leg, underwent surgery and has had significant infection on the left leg for which Home Health comes and dresses that and the wound is healing. She has had the surgeries done at [facility]. From a cardiac standpoint, she does not complain of having had chest pains or palpitations. At the present time she feels well. Her top lift compresser is Dr. Oconnor in [place]. She states that when she saw him recently her blood pressure was low and her beta-blockers were discontinued. As far as low blood pressures are concerned, she says her blood pressures are recorded at home read from 130 to 140 systolic. In the past she was on Coreg 6.25 mg twice daily. She was also admitted at [facility] in January 2018 with acute on chronic heart failure. REVIEW OF SYSTEM: A 14-point review of system was done.Gastrointestinal: No history of nausea, vomiting, diarrhea. There is no history of hematemesis or melena. Central Nervous System: No focal weakness to suggest a CVA or TIA. Genitourinary: There is no dysuria or hematuria. PAST MEDICAL HISTORY: 1. Coronary artery disease, status post coronary artery bypass grafting. 2. Ischemic cardiomyopathy status post Bi V ICD. 3. Atrial fibrillation. 4. Hypertension. 5. Uterine cancer. 6. Congestive heart failure systolic. 7. History of falls with multiple fractures. 8. Right upper lobe mass. 9. Last echocardiogram revealed ejection fraction of 35%, with mild concentric left ventricular hypertrophy. HOME MEDICATIONS: Include: 1. Entresto. 2. Coreg 6.25 b.i.d., which she had not been taking. 3. Lasix. 4. Ancef. 5. Ranexa. 6. Livalo. 7. Eliquis 5 mg twice daily. 8. Furosemide 40 mg a day. 9. Fish oil. 10. Calcium. 11. Potassium supplements. 12. Minocycline. 13. Ranexa. 14. Wellbutrin. PHYSICAL EXAMINATION: Vital Signs: Blood pressure was 150/80. Cardiovascular: First and second heart sounds were heard. There is faint systolic murmur. Respiratory: Respiratory normal air entry. There are no crepitations or rhonchi. Abdomen: Soft, nontender. There was no guarding or rigidity. Bowel sounds were heard. Central Nervous System: Alert and oriented. Moving moving all 4 extremities. Detailed central nervous system examination not performed. Extremities: Left leg was bandaged. She has had a healing wound with the surgeries in the past. ASSESSMENT AND PLAN: Ms. Yessy Treviño is a 72-year-old lady with history of: 1. Coronary artery disease, status post coronary artery bypass grafting about 20 years ago in [place], ischemic cardiomyopathy, Bi V ICD placement, permanent atrial fibrillation. 2. Hypertension. 3. History of systolic heart failure. 4. Had an episode of having passed out with jerking movements in her left lower leg; however, family also states that maybe have had the AICD discharge as well. From a cardiac standpoint: 1. We will have the AICD interrogated. 2. She has chronic atrial fibrillation. Has been on Eliquis. No bleeding diatheses. 3. We will check her magnesium levels. Potassium was normal. 4. We will get an echocardiogram to assess cardiac and valvular function. 5. Recommend continue all her home medications. She has been on Coreg; however, she had recently stopped the Coreg as blood pressures were low; however, on questioning her, she says her blood pressures have been around 130 and above. Given this, we will restart her Coreg at 6.25 mg twice daily. Thank you for the consult. We will follow hospital course. addendum: AIC interogation no AFIB/VT events noted. cc: Cristóbal Vick MD [facility]
[2018-07-24] MEDS: COREG PO SCH (20:25)
[2018-07-24] MEDS: MINOCIN PO SCH (20:25)
[2018-07-24] MEDS: WELLBUTRIN XL PO SCH (20:25)
[2018-07-24] MEDS: FLEXERIL PO SCH (20:25)
[2018-07-24] MEDS: LEVAQUIN PO SCH (20:25)
[2018-07-24] MEDS: ENTRESTO 24 MG-26 MG TABLET PO SCH (20:25)
[2018-07-24] MEDS: KLOR-CON PO SCH (20:26)
[2018-07-24] MEDS ORDERED: ELIQUIS PO SCH (21:00)
[2018-07-24] MEDS: PERCOCET-10 PO PRN (21:57)
[2018-07-24 22:57] LABS: URINE SOURCE CLEAN CATCH
[2018-07-24 23:14] LABS: BILIRUBIN URINE NEGATIVE (NEGATIVE); BLOOD URINE NEGATIVE (NEGATIVE); COLOR YELLOW; GLUCOSE URINE NEGATIVE (NEGATIVE); KETONE URINE TRACE mg/dL (NEGATIVE); LEUKOCYTES URINE NEGATIVE (NEGATIVE); NITRITE URINE NEGATIVE (NEGATIVE); PH URINE 6.5; PROTEIN URINE TRACE mg/dL (NEGATIVE); SP GRAVITY URINE 1.016; TURBIDITY URINE CLEAR (CLEAR); UR EPITHELIAL CELLS <10 /HPF (<10); URINE BACTERIA NEGATIVE /HPF; URINE RBC <10 /HPF (<10); URINE WBC <10 /HPF (<10); UROBILINOGEN URINE NORMAL (NORMAL)
--- NOTE | 2018-07-25 07:28 | EKG Report ---
Test Performed on : 07/25/2018 07:13:40 AM Test Reason : chest pain Blood Pressure : / mmHG Vent. Rate : 060 BPM Atrial Rate : 062 BPM P-R Int : 000 ms QRS Dur : 176 ms QT Int : 540 ms P-R-T Axes : 000 051 037 degrees QTc Int : 540 ms Ventricular-paced rhythm Abnormal ECG When compared with ECG of 24-JUL-2018 12:51, (Unconfirmed) No significant change was found Confirmed by Ridge MAN, Uli Arnold ([id number]) on 07/25/2018 9:06:51 AM
--- NOTE | 2018-07-25 07:57 | Diag Imaging Result Doc PS360 ---
CHEST-PORTABLE - 07/25/2018 INDICATION: follow up COMPARISON: 07/24/2018 FINDINGS: There is a stable nodular infiltrate in the right upper lobe. Stable cardiomegaly. Stable linear atelectasis in the left lung base. IMPRESSION: No change from prior. Electronically signed by Tam Venegas 07/25/2018 7:55 AM
[2018-07-25 08:14] LABS: BASO# 0.03 X1000 (0.0-0.2); BASO% 0.7 % (0.0-0.8); EOS# 0.08 X1000 (0.0-0.7); EOS% 1.7 % (0.0-10.0); HEMATOCRIT 36.8 % (37.0-47.0); HEMOGLOBIN 11.9 g/dL (12.0-16.0); LYMPH# 0.56 X1000 (1.2-3.4); LYMPH% 12.1 % (20.5-51.1); MCH 29.8 PG (27-31); MCHC 32.3 g/dL (33-37); MCV 92.2 FL (81-99); MONO# 0.43 X1000 (0.11-0.59); MONO% 9.3 % (1.7-9.3); MPV 11.1 FL (7.4-10.4); NEUT# 3.51 X1000 (1.4-6.5); NEUT% 76.2 % (42.2-75.2); PLT 195 X1000 (130-400); RBC 3.99 XMIL (4.2-5.4); WBC 4.61 X1000 (4.8-10.8)
[2018-07-25 08:43] LABS: ALB/GLOB RATIO 1.7; ALBUMIN 3.5 g/dL (3.5-5.0); CALCIUM 8.8 mg/dL (8.8-10.2); MAGNESIUM 2.2 mg/dL (1.5-2.7); POTASSIUM 3.6 mmol/L (3.5-5.1); TOTAL BILIRUBIN 0.55 mg/dL (0.20-1.00); TOTAL PROTEIN 5.6 g/dL (6.3-8.3)
[2018-07-25] MEDS: CALTRATE 600 PO SCH (09:41)
[2018-07-25] MEDS: COREG PO SCH ×2 (09:42→20:29)
[2018-07-25] MEDS: LIVALO PO SCH (09:42)
[2018-07-25] MEDS: MINOCIN PO SCH ×2 (09:42→20:29)
[2018-07-25] MEDS: FISH OIL CONCENTRATE PO SCH (09:42)
[2018-07-25] MEDS: ENTRESTO 24 MG-26 MG TABLET PO SCH ×2 (09:43→20:30)
[2018-07-25] MEDS: WELLBUTRIN XL PO SCH ×2 (09:43→20:29)
[2018-07-25] MEDS: FLEXERIL PO SCH ×2 (09:43→20:30)
[2018-07-25] MEDS: ELIQUIS PO SCH ×2 (09:43→20:29)
[2018-07-25] MEDS: PERCOCET-10 PO PRN ×3 (09:49→21:37)
--- NOTE | 2018-07-25 10:46 | ECHO REPORT ---
ORDER DATE: 07/24/2018 INTERPRETING PHYSICIAN: Dr. Jiménez REQUESTING PHYSICIAN: Dr. Reynoso CLINICAL INDICATIONS: This is a 72-year-old female with CHF, MRSA infection. M-MODE MEASUREMENTS: Right ventricle: cm. Left ventricle end diastole: 5.3 cm. Left ventricle end systole: 4.8 cm. Posterior wall: 1.9 cm. Interventricular septum: 1.0 cm. Left atrium: 3.7 cm. Aortic root: 3.1 cm. SUMMARY OF 2-DIMENSIONAL IMAGIN. The left ventricular chamber is enlarged. The global left ventricular systolic function is moderately impaired. Global ejection fraction is estimated at 40%. There is paradoxical or atypical contractility of the interventricular septum, probably related to presence of pacemaker device. There is also hypokinesis of the inferior wall and the inferior interventricular septum. 2. The left atrium is significantly enlarged. 3. The mitral valve shows normal opening. Color flow mapping indicates moderate degree of regurgitation. 4. The pulse wave Doppler of mitral inflow shows a fusion of the E and the A waves. I am not quite certain if the patient is really in sinus rhythm. The patient may be in underlying atrial fibrillation. 5. The velocity of the mitral annulus is about 8 cm which would speak against significant diastolic dysfunction. 6. The pulse wave Doppler of pulmonary venous flow shows predominance of the diastolic component. 7. The left atrial pressure is probably elevated. 8. The left atrium is significantly enlarged. 9. The right ventricle is not enlarged. There is a pacemaker device or catheter inside. 10.The tricuspid valve is not well visualized. I cannot rule out the possibility of vegetation attached to the tricuspid valve or the pacemaker lead. Color flow mapping of tricuspid valve indicated mild to moderate degree of regurgitation. 11.Pulmonary pressure is estimated at 39 to 44 mmHg. 12.The aortic valve opens normally. Color flow mapping is unremarkable. 13.The pulmonic valve had normal Doppler pattern. 14.There was no gross abnormality at the level of the pulmonic valve, although it was not well visualized. 15.There was no pericardial effusion, mass or thrombus. RECOMMENDATIONS: Consider doing transesophageal echocardiogram if there is a strong suspicion of endocarditis on this patient. cc: Earnest Jiménez MD
--- NOTE | 2018-07-25 12:44 | PROGRESS NOTE ---
DATE: 07/25/2018 SUBJECTIVE: Ms. Treviño has not had any more seizure episodes or other episodes of altered awareness. is present at the bedside today and his firsthand history of the likely seizure episode yesterday is that the patient had rhythmic jerking of the left leg followed by rigidity of the trunk and limbs, with symmetric tonic arm flexion, and then vigorous symmetric jerking movement in all limbs. Teeth were clinched. Eyes were open. Episode resolved in about 15 seconds and she was somnolent afterwards. He reports he has never seen her have this behavior before. He agrees she seems completely normal mentally now. We reviewed her medication list. After clarification, I believe that she was not recently taking desvenlafaxine or bupropion as were listed on the initial list. She has been on Levaquin recently. I do not see anything else on the current medication list that would likely have any effect on seizure tendency. In light of the EEG findings and the focal nature of this episode, I think it is prudent to recommend that she begin medicine for seizure control. We discussed several of these. We did not choose oxcarbazepine because she will need to depend on her balance to recover independent walking ability. Lamotrigine might provide some mood benefit, but titration is very slow. I have ordered to start levetiracetam. We discussed potential adverse effects including somnolence and personality change. She and understand to let me know if she has any problems with that. I will arrange to see her in my office in about a month and she understands to report sooner to me or to her primary physician, Dr. Shore, if she has more seizures or problems tolerating levetiracetam. Thanks for asking Neurology to see Ms. Treviño. cc: MD NABILA Gay III
--- NOTE | 2018-07-25 12:55 | PROGRESS NOTE ---
DATE: 07/25/2018 SUBJECTIVE: The patient resting comfortably in bed. Has by the bedside. OBJECTIVE: Vital signs: Vital signs are as follows: Temperature 97.7 degrees, pulse 60, respiratory rate 18, blood pressure is 119/56, oxygenation is 94%. HEENT: Atraumatic, normocephalic. Cardiovascular system: S1, S2. Respiratory system: Has evidence of good air entry bilaterally. Abdomen: Soft, nontender. No masses felt. Extremities: No evidence of edema. Central nervous system: No obvious focal deficit noted. LABS: Labs are as follows: WBC is 4.61, hematocrit is 6.8, with a platelet count of 195. Sodium 140, potassium 4.3, chloride is 103, bicarbonate 26. BUN is 14, creatinine 1.0. ASSESSMENT AND PLAN: 1. New-onset seizures. Follow up on electroencephalogram report. The patient cannot have a magnetic resonance imaging done because she does have a pacemaker. Neurology consulted. 2. Coronary artery disease. Stable. Asymptomatic. 3. Atrial fibrillation. Continue rate controlling agent, as well as apixaban. 4. Left lower extremity wound. Continue local wound care. 5. Diabetes mellitus. Continue blood sugar monitoring, as well as sliding scale insulin. 6. Congestive heart failure. Monitor intakes and outputs, as well as daily weights. Diuretics as needed. 7. Deep vein thrombosis prophylaxis. Patient is on apixaban. cc: Wilian Willingham MD
[2018-07-25] MEDS: KEPPRA PO SCH ×2 (13:15→20:30)
--- NOTE | 2018-07-25 13:51 | EEG REPORT ---
DATE: 07/24/2018 EEG NUMBER: [id number] COMMENT: This is a digitally recorded EEG done portably in the ICU on a 72-year-old patient with apparent recent focal motor seizure in the left leg, secondary generalized seizure. FINDINGS: During waking, poorly sustained 9 Hz posterior rhythm is present bilaterally with uncertain reactivity to eye opening. Background contains abundant polymorphic and rhythmic theta and delta frequencies across the hemispheres symmetrically. Drowsing and stage 2 sleep were recorded with symmetric features. There were several periods of abrupt higher amplitude slowing, mostly frontal temporal bilaterally, and there were a few equivocal sharp wave discharges, sometimes more prominent in the left hemisphere. INTERPRETATION: Abnormal EEG because of generalized slowing and possible left hemisphere epileptiform discharge. CORRELATION: This is indicative of diffuse encephalopathy and is nonspecific. The epileptiform discharge is contralateral to expected finding for motor seizure involving the left leg. cc: Bernadette Hall III, MD MTDD
[2018-07-25] MEDS: LEVAQUIN PO SCH (20:30)
[2018-07-25] MEDS: KLOR-CON PO SCH (20:30)
[2018-07-26] MEDS: ENTRESTO 24 MG-26 MG TABLET PO SCH (08:17)
[2018-07-26] MEDS: CALTRATE 600 PO SCH (08:17)
[2018-07-26] MEDS: FISH OIL CONCENTRATE PO SCH (08:17)
[2018-07-26] MEDS: KEPPRA PO SCH (08:17)
[2018-07-26] MEDS: FLEXERIL PO SCH (08:17)
[2018-07-26] MEDS: COREG PO SCH (08:17)
[2018-07-26] MEDS: WELLBUTRIN XL PO SCH (08:17)
[2018-07-26] MEDS: MINOCIN PO SCH (08:17)
[2018-07-26] MEDS: ELIQUIS PO SCH (08:17)
[2018-07-26] MEDS: LIVALO PO SCH (08:17)
[2018-07-26 08:29] VITALS: BP 103/59
--- NOTE | 2018-07-26 22:40 | DISCHARGE SUMMARY ---
ADMISSION DATE: 07/24/2018 DISCHARGE DATE: 07/26/2018 DISPOSITION: Home. FOLLOW-UP: 1. Dr. Fabián Shore. 2. Dr. Bernadette Hall. CONSULTATION DURING THIS ADMISSION: Neurology was consulted, patient was seen by Dr. Hall. INVASIVE PROCEDURES DURING ADMISSION: None. IMAGING STUDIES OF SIGNIFICANCE: 1. A chest x-ray on presentation shows stable chest. 2. A CT scan of the head showed no acute disease. 3. Echocardiogram showed ejection fraction of about 40% with global hypokinesis. 4. A repeat chest x-ray yesterday showed no change from prior. 5. An EEG done by Neurology showed possible left hemisphere epileptiform discharge. ADMISSION DIAGNOSIS: 1. New onset seizures. 2. Right lower extremity injury with multiple surgeries. 3. Frequent urinary tract infections. 4. History of coronary artery disease. 5. Atrial fibrillation with pacemaker. 6. Diabetes mellitus. DISCHARGE DIAGNOSES: 1. New onset seizure episode with EEG concerning for a left hemispheric epileptiform discharge. The patient has been evaluated by Neurology and recommend to continue with levothyroxine. 2. History of congestive heart failure. Ejection fraction of 40%. Currently euvolemic. 3. Paroxysmal atrial fibrillation, status post pacemaker and implantable cardioverter defibrillator. 4. History of coronary artery disease. 5. Diabetes mellitus type 2. 6. Ischemic cardiomyopathy. 7. Left foot injury with multiple surgeries associated with infections. Patient is on chronic antimicrobial therapy. PRESENTING COMPLAINT: Seizure with loss of bladder. HISTORY OF PRESENTING COMPLAINT: Ms Treviño is a 72-year-old female who is a patient of Dr. Padilla, came to the emergency department because of 1 episode of seizures with loss of bladder control, patient was evaluated and admitted for further neurological observation. HOSPITAL COURSE: Mr. Treviño was admitted to the ICU, was placed under neurological evaluation. However, throughout the hospital course, she did not have any more seizures. The patient was evaluated by Neurology, an EEG was done, which was unremarkable. The patient did complain of some chest discomfort after the CPR. Apparently, after she had a seizure, she became unresponsive for some time and lost pulse, so the healthcare nurse who was there started a short course of CPR and patient responded. Throughout the hospital stay, she has not had any more seizures and she is clinically stable. She is, therefore, going to be discharged on levothyroxine, and she will also start back on all her other medications. She will follow up with Dr. Hall on outpatient basis, and she will also follow up with her primary care doctor and her other subspecialties. The patient has been advised about seizure precautions. All the discharge instructions have been discussed with her. She has been advised not to drive at least for the next 6 months. Also, not to endorse in any risky activities, including climbing hills or submerging into hoyt without any supervision. All the discharge instructions have been discussed with her and she voiced understanding. The was at the bedside with her at the time of the encounter. TIME SPENT: For discharge is 38 minutes. cc: MD Fabián King MD Eston G. Norwood III, MD
== END 2018-07-26 12:20 | disposition home health service (06) | DRG 101 ==
LOC: SUPCPDRO → ED 12:41 → ICU 14:59 → SUATTDRO 14:59
PROVIDERS: ATTEND Internal Medicine
CPT/HCPCS: 70450; 71010; 71020; 71045; 71046; 80053; 81001; 82550; 82948; 83735; 83880; 84484; 85025; 85610; 85730; 93005; 93010; 93306; 95816; 96374; 99285; A9270; J2405; XXXXX

== ENCOUNTER 2018-10-21 06:50 | Inpatient (IN) ==
[2018-10-21 08:16] LABS: INR 1.14; PROTIME 14.7 Seconds (11.0-16.0)
[2018-10-21 08:17] LABS: PTT 31.9 Seconds (22.3-41.8)
--- NOTE | 2018-10-21 10:07 | Diag Imaging Result Doc PS360 ---
EXAM: CHEST-2 VIEWS INDICATION: INS/EXP POST BIOPSY TECHNIQUE: 2 views COMPARISON: 10/01/2018 FINDINGS: There is a small right apical pneumothorax seen best on the expiration image status post right lung biopsy. And occupies approximately 15% of the right hemithorax. There is a moderate amount of subcutaneous emphysema adjacent to the right chest wall. The known right upper lobe lung mass is approximately stable. No new consolidation is identified. No pleural fluid collection is appreciated. The cardiac silhouette is prominent but stable. The pacemaker/defibrillator is in stable position. IMPRESSION: Small right apical post biopsy pneumothorax. A repeat chest radiograph will be performed in four hours to assure stability. Electronically signed by Fabián Ricardo 10/21/2018 10:05 AM
--- NOTE | 2018-10-21 10:57 | Diag Imaging Result Doc PS360 ---
EXAM: CT GUIDED BIOPSY LUNG INDICATION: solitary pulmonary nodule - R91.1 TECHNIQUE: COMPARISON: CT PET scan dated 10/08/2018 FINDINGS: Risks, benefits, and alternatives were discussed with the patient and informed consent was obtained. The patient was placed in a supine position and was prepped and draped in sterile fashion. Local anesthesia was achieved with 1% lidocaine solution. Using CT guidance, an 18-gauge coaxial biopsy needle was used to obtain four 1.3 cm core biopsies from the right upper lobe lung mass seen on the prior PET scan. There was expected mild hemoptysis just after biopsy, which promptly stopped. A postprocedural chest radiograph showed a small right apical pneumothorax occupying about 15% of the right hemithorax. IMPRESSION: Technically successful CT-guided right upper lung mass biopsy complicated by a small pneumothorax. The patient will be monitored and a repeat chest radiograph will be performed in four hours. Electronically signed by Fabián Ricardo 10/21/2018 10:55 AM
--- NOTE | 2018-10-21 11:28 | Diag Imaging Result Doc PS360 ---
EXAM: CHEST-2 VIEWS INDICATION: shortness of breath following lung bx TECHNIQUE: 2 views COMPARISON: 10/21/2018 FINDINGS: The pneumothorax in the right has increased in size during the interval. It now appears to be between 20 and 30% of the right hemithorax. The amount of subcutaneous gas on the right has increased slightly. The chest is stable, otherwise. IMPRESSION: Interval increase in size of the right pneumothorax. Dr. Ortega has been contacted to obtain a surgical consult for potential chest tube placement. Electronically signed by Fabián Ricardo 10/21/2018 11:25 AM
--- NOTE | 2018-10-21 12:36 | Diag Imaging Result Doc PS360 ---
EXAM: CHEST-PORTABLE INDICATION: chest tube placement TECHNIQUE: One view COMPARISON: 10/21/2018 FINDINGS: There has been interval placement of a small bore chest tube on the right. The tip of the chest tube projects over the right lung apex. There has been interval reexpansion of the right lung. No residual pneumothorax can be identified on this radiograph post chest tube placement. Subcutaneous emphysema overlying the right chest wall is unchanged. The chest is stable, otherwise. IMPRESSION: Interval placement of chest tube on the right with reexpansion of the right lung. No residual pneumothorax can be identified on this plain radiograph. Electronically signed by Fabián Ricardo 10/21/2018 12:34 PM
--- NOTE | 2018-10-21 13:59 | OPERATIVE NOTE ---
PROCEDURE DATE: 10/21/2018 PREOPERATIVE DIAGNOSIS: Right-sided pneumothorax status post chest CT-guided biopsy. POSTOPERATIVE DIAGNOSIS: Right-sided pneumothorax status post chest CT-guided biopsy. PROCEDURE: Placement of a right-sided chest tube (8-Tunisian). SURGEON: Enoch Akins MD. CLAIM REPRESENTATIVE: None. ANESTHESIA: Local administered by the surgeon. FINDINGS: Gonzalez of air noted, and we placed it with a sensation of air leak after several seconds of being on suction. COMPLICATIONS: None at the time of dictation. ESTIMATED BLOOD LOSS: Minimal. SPECIMENS REMOVED: None. BRIEF HISTORY: A 73-year-old female with a right-sided lung mass. She underwent a CT-guided biopsy today. She did have a pneumothorax that was expanded after the lung biopsy. It was felt that she needed chest tube placement. The risks, benefits, and alternatives were discussed, and documented in the chart. All questions answered. DESCRIPTION OF PROCEDURE: After informed consent was obtained, the patient remained in the outpatient holding. Her right chest was prepped and draped in a sterile fashion. A formal time- out was then performed confirming patient, date, and the procedure. All were in agreement. At that time, attention of the right chest in an anterior location where they had previously done the biopsy, which appeared to be the 2nd or 3rd intercostal space. We used local anesthetic to anesthetize the skin. We had prepped and draped in sterile fashion. Through the preexisting incision from her lung biopsy, we directed a needle into the chest. We were able to suction air. We then placed an 8-Tunisian chest tube in this area and secured it to the atrium, and air bubbled out, and then stopped once this was connected to suction. We secured it in place and placed a sterile dressing. At the time of dictation, a chest x-ray is pending. She will be admitted to the floor. cc: MD Jeni Palmer MD
[2018-10-21] MEDS ORDERED: ZOFRAN IV PRN (14:40)
[2018-10-21] MEDS ORDERED: TYLENOL PO PRN (14:40)
[2018-10-21] MEDS: HUMALOG SUBQ SCH ×2 (15:24→21:51)
[2018-10-21] MEDS: MINOCIN PO SCH (15:31)
--- NOTE | 2018-10-21 15:32 | CONSULTATION ---
DATE OF CONSULTATION: 10/21/2018 CONSULTING PHYSICIAN: Dr. Enoch Akins. REASON FOR CONSULTATION: Medical management. HISTORY OF PRESENT ILLNESS: Ms. Treviño is a 73-year-old female, well known to our service, who carries a past medical history of coronary artery disease, atrial fibrillation with pacemaker, anticoagulation therapy, congestive heart failure, uterine and vulva cancer, diabetes mellitus type 2, left leg injury with hardware, and recent finding of a pulmonary nodule on the right that she went for a biopsy today, got a 30% pneumothorax. Dr. Akins placed a chest tube and we have been consulted for medical management. PAST MEDICAL HISTORY: 1. Coronary artery disease. 2. Paroxysmal atrial fibrillation with pacemaker. 3. Anticoagulation therapy. 4. Congestive heart failure. 5. Uterine and vulva cancer. 6. Diabetes mellitus type 2. 7. Left leg injury with hardware. 8. Recent pulmonary nodule on the right. The patient has had biopsies. 9. New seizure diagnosis. PAST SURGICAL HISTORY: 1. Now status post biopsy and insertion of right chest tube. 2. CABG in 1990. 3. Tonsillectomy. 4. Appendectomy. 5. Pacemaker implantation. 6. Cardiac stent x4. 7. Recent leg surgeries with hardware removal and implantation of a pig bladder to institute healing. Unsure if she has been able to have the hardware removed. SOCIAL HISTORY: She quit smoking in 1997. She smoked 1 to 2 packs of cigarettes per day for 20+ years. No alcohol or illicit drug use. She lives at home with her . She did have home health come out and change her bandages on her left leg. FAMILY HISTORY: Positive for lung cancer and coronary artery disease. ALLERGIES: Celebrex. HOME MEDICATIONS: 1. Eliquis 5 mg p.o. b.i.d. 2. Redwood 7.5/325 one each p.o. q.4 hours. 3. Levofloxacin 250 mg tablet p.o. daily. 4. Minocycline 100 mg p.o. q.12 hours. 5. Fish oil 2000 mg p.o. daily. 6. Percocet 10 one each p.o. t.i.d. 7. Wellbutrin 150 mg p.o. b.i.d. 8. Calcium 50210 mg p.o. daily. 9. Coreg 6.25 mg p.o. b.i.d. 10. Vitamin D3, 2000 units p.o. daily. 11. Flexeril 10 mg p.o. b.i.d. 12. Venlafaxine 100 mg p.o. daily. 13. Lasix 40 mg p.o. b.i.d. 14. Keppra 500 mg p.o. b.i.d. 15. Livalo 2 mg tablet daily. 16. Potassium chloride 1 tab p.o. at bedtime, 20 mEq. 17. Entresto 24-26 mg tablet 1 tab p.o. b.i.d. PHYSICAL EXAMINATION: Vital Signs: Temperature is 97.5 degrees, heart rate 63, respirations 16, blood pressure 108/47, O2 is 97% on 2 L nasal cannula. General: Ms. Treviño is a pleasant 73-year- old female who is sitting on the bed in no acute distress. HEENT: Atraumatic, normocephalic. PERRL. Neck: Supple. Trachea midline. Cardiovascular: S1, S2 appreciated. Pacemaker noted. No murmurs, gallops, or rubs. Respiratory: Lung sounds decreased in the right, clear on the left. She does have a right upper chest tube in place. Extremities: No lower extremity edema. Gastrointestinal: Abdomen is flat, soft, nontender, nondistended. Positive bowel sounds x4 quadrants. Neurologic: The patient is awake, alert, and oriented, follows commands. Moves all extremities. DIAGNOSTIC DATA: 1. Lung biopsy CT was successful, complicated by a small pneumothorax at around 15%. Repeat chest x-ray showed interval increase in the size of the pneumothorax, increased to 20 to 30 percent. 2. Right-sided chest tube placement by Dr. Akins. ASSESSMENT AND PLAN: 1. Status post CT-guided of the right upper biopsy complicated by a pneumothorax, status post right upper chest tube placement by Dr. Enoch Akins. Chest tube care will be as per General Surgery. 2. Recent diagnosis of a lung nodule status post biopsy. Aware. Followed by Dr. Jeni Iraheta. 3. New onset seizures. We will continue with Keppra. 4. Right lower extremity injury where she has had multiple surgeries, hardware placement as well as pig bladder to help with healing. On antibiotics with Levaquin and minocycline. 5. Frequent urinary tract infections in the past. 6. Coronary artery disease status post coronary artery bypass grafting and 4 cardiac stents. Continue home medications. No chest pain. 7. Type 2 diabetes. We will continue with fingerstick blood sugars and sliding scale. 8. Congestive heart failure history. She is not in exacerbation. 9. Further recommendations to follow physician evaluation, laboratory and diagnostic data. Dictated by LANNY Patel for Clayton iWlls MD cc: MD Enoch Morse MD Heather Shah, MD
--- NOTE | 2018-10-21 18:06 | EKG Report ---
Test Performed on : 10/21/2018 5:21:31 PM Test Reason : LOW HEART RATE Blood Pressure : / mmHG Vent. Rate : 060 BPM Atrial Rate : 060 BPM P-R Int : 000 ms QRS Dur : 166 ms QT Int : 538 ms P-R-T Axes : 000 035 000 degrees QTc Int : 538 ms Suspect unspecified pacemaker failure Ventricular-paced rhythm Abnormal ECG When compared with ECG of 01-OCT-2018 20:55, (Unconfirmed) Electronic ventricular pacemaker has replaced Atrial fibrillation. Confirmed by Rodolfo Sorensno MD ([id number]) on 10/26/2018 9:28:55 PM
--- NOTE | 2018-10-21 19:33 | CONSULTATION ---
DATE OF CONSULTATION: 10/21/2018 ADDENDUM: A 73-year-old female was up for outpatient lung biopsy and developed a pneumothorax requiring chest tube placement. The patient was placed in observation as such. She has a history of cancer, CAD, atrial fibrillation. She is status post pacemaker, which is managed by a molder operator in the [place] area. In any case, the patient had a small pneumothorax, which has resolved with thoracostomy tube. They will be managing that primarily else booth. On physical exam, her breathing is stable. She has developed some bradycardia, but her EKG just reveals a paced rhythm without difficulty. She says the last time her pacer was interrogated was in May, and it was stable at that time. We will pursue interrogation of her pacemaker when available and follow. cc: Clayton Wills MD
[2018-10-21] MEDS ORDERED: COREG PO SCH (21:00)
[2018-10-21] MEDS: MORPHINE IV PRN (21:53)
[2018-10-21] MEDS: PERIDEX MT SCH (22:02)
[2018-10-21] MEDS: LASIX PO SCH (22:03)
[2018-10-21] MEDS: ENTRESTO 24 MG-26 MG TABLET PO SCH (22:03)
[2018-10-21] MEDS: FLEXERIL PO SCH (22:03)
[2018-10-21] MEDS: KEPPRA PO SCH (22:03)
[2018-10-21] MEDS: WELLBUTRIN XL PO SCH (22:03)
[2018-10-21] MEDS: KLOR-CON PO SCH (22:03)
[2018-10-22 00:04] LABS: URINE SOURCE CLEAN CATCH
[2018-10-22 00:39] LABS: BILIRUBIN URINE NEGATIVE (NEGATIVE); BLOOD URINE TRACE (NEGATIVE); COLOR YELLOW; GLUCOSE URINE NEGATIVE (NEGATIVE); KETONE URINE NEGATIVE (NEGATIVE); LEUKOCYTES URINE NEGATIVE (NEGATIVE); NITRITE URINE NEGATIVE (NEGATIVE); PH URINE 6.5; PROTEIN URINE NEGATIVE (NEGATIVE); SP GRAVITY URINE 1.007; TURBIDITY URINE CLEAR (CLEAR); UR EPITHELIAL CELLS <10 /HPF (<10); URINE BACTERIA NEGATIVE /HPF; URINE RBC <10 /HPF (<10); URINE WBC <10 /HPF (<10); UROBILINOGEN URINE NORMAL (NORMAL)
[2018-10-22] MEDS: MORPHINE IV PRN (02:23)
[2018-10-22] MEDS: MINOCIN PO SCH ×2 (02:24→15:23)
--- NOTE | 2018-10-22 06:19 | GENERAL SURGERY PROGRESS NOTE ---
DATE: 10/22/2018 SUBJECTIVE: Patient seems to be doing about the same. She is not having any difficulty breathing. OBJECTIVE: Vital Signs: Patient is currently afebrile. Her vital signs have been stable. General: No acute distress. HEENT: Normocephalic, atraumatic. Pupils equal, round, reactive to light. Mucous membranes moist. Oropharynx benign. Neck: Supple, trachea midline. Cardiovascular: Regular rate and rhythm. Lungs: Increased breath sounds noted to the right side. Chest tube without air leak. Abdomen: Soft, nontender, nondistended. Extremities: Moves all extremities. Neurologic: Grossly intact. Skin: No signs of jaundice. Vascular: All extremities perfused. LABORATORY: None this morning as of yet. Chest x-ray from yesterday after chest tube placement reviewed, the pneumothorax has resolved. ASSESSMENT AND PLAN: A 73-year-old with pneumothorax on the right side status post CT-guided lung biopsy. Pneumothorax. At this time, will change her chest tube to water seal. Will monitor and get a repeat chest x-ray today and one tomorrow. If it seems like the chest x-ray shows the lung is still inflated, potentially remove the chest tube tomorrow. Otherwise, continue supportive care. cc: MD Clayton Palmer MD
[2018-10-22 07:01] LABS: HEMATOCRIT 27.9 % (37.0-47.0); HEMOGLOBIN 8.6 g/dL (12.0-16.0); MCH 30.6 PG (27-31); MCHC 30.8 g/dL (33-37); MCV 99.3 FL (81-99); RBC 2.81 XMIL (4.2-5.4); RDW 14.5 % (11.5-14.5)
[2018-10-22 07:02] LABS: BASO# 0.03 X1000 (0.0-0.2); BASO% 0.8 % (0.0-0.8); EOS# 0.27 X1000 (0.0-0.7); EOS% 7.3 % (0.0-10.0); LYMPH# 0.52 X1000 (1.2-3.4); LYMPH% 14.1 % (20.5-51.1); MONO% 8.1 % (1.7-9.3); NEUT# 2.58 X1000 (1.4-6.5); NEUT% 69.7 % (42.2-75.2); PLT 181 X1000 (130-400)
[2018-10-22] MEDS: HUMALOG SUBQ SCH ×4 (07:04→21:17)
--- NOTE | 2018-10-22 07:08 | Diag Imaging Result Doc PS360 ---
EXAM: CHEST-PORTABLE 10/22/2018 HISTORY: R chest tube TECHNIQUE: AP portable at 0550 COMMENT: There is a small caliber chest tube on the right. There is no evidence of residual or recurrent pneumothorax. The soft tissue emphysema in the right lateral chest has diminished since 10/21/2018. There is cardiomegaly. There is a somewhat poorly defined opacity in the right upper lobe. IMPRESSION: Improving soft tissue emphysema. Electronically signed by Jimi Borrero 10/22/2018 7:06 AM
[2018-10-22] MEDS: ULTRAM PO PRN ×2 (07:14→21:18)
[2018-10-22 07:31] LABS: AGAP 11; ALB/GLOB RATIO 2.1; ALBUMIN 3.4 g/dL (3.5-5.0); ALKALINE PHOSPHATASE 92 U/L (32-104); BUN 21 mg/dL (8-22); CALCIUM 8.3 mg/dL (8.8-10.2); CHLORIDE 106 mmol/L (98-107); COSMO 287; CREATININE 1.7 mg/dL (0.5-0.9); ESTIMATED GFR 29; GLUCOSE 89 mg/dL (70-104); GOT 11 U/L (10-30); GPT < 5 U/L (10-36); MAGNESIUM 2.4 mg/dL (1.5-2.7); POTASSIUM 4.3 mmol/L (3.5-5.1); SODIUM 143 mmol/L (136-145); TCO2 26 mmol/L (25-35); TOTAL BILIRUBIN 0.37 mg/dL (0.20-1.00)
[2018-10-22] MEDS: PRISTIQ ER PO SCH (09:19)
[2018-10-22] MEDS: VITAMIN D PO SCH (09:19)
[2018-10-22] MEDS: LIVALO PO SCH (09:20)
[2018-10-22] MEDS: LEVAQUIN PO SCH (09:20)
[2018-10-22] MEDS: ENTRESTO 24 MG-26 MG TABLET PO SCH ×2 (09:20→20:39)
[2018-10-22] MEDS: PERIDEX MT SCH ×2 (09:20→20:39)
[2018-10-22] MEDS: CALTRATE 600 PO SCH (09:20)
[2018-10-22] MEDS: KEPPRA PO SCH ×2 (09:20→20:40)
[2018-10-22] MEDS: FLEXERIL PO SCH ×2 (09:21→20:39)
[2018-10-22] MEDS: LASIX PO SCH (09:21)
[2018-10-22] MEDS: WELLBUTRIN XL PO SCH ×2 (09:22→20:39)
[2018-10-22] MEDS ORDERED: NS 1,000 ML IV ONE (17:12)
--- NOTE | 2018-10-22 18:12 | PROGRESS NOTE ---
DATE: 10/22/2018 SUBJECTIVE: Patient has no major complaints. OBJECTIVE: Vital signs: Blood pressure 98/54, heart rate 71, respiratory rate 16, temperature 98.1 degrees. Cardiovascular: Regular rate and rhythm. Pulmonary: Bilateral breath sounds clear to auscultation. GI: Soft, nontender, nondistended. Bowel sounds are positive. LABORATORY DATA: White count 3.7, hemoglobin and hematocrit 8 and 27, platelets of 181,000. Creatinine is at 1.7, which is not far from baseline. PROBLEM LIST: 1. Pneumothorax status post lung biopsy. Seems to have resolved. Chest tube is in place. Surgery is following. Chest tube removal per surgery. We will continue to monitor. 2. Chronic renal insufficiency. We will continue to monitor. She has a little bit of baseline insufficiency and seems compensated. Actually it has been up and down but it has been better before. We will probably give her some gentle hydration and follow. 3. Seizure. She is on regular medications. 4. Disposition. At the discretion of surgery, once the chest tube is out she will be able to go home. That still may be another day or 2 away. cc: Clayton Wills MD
[2018-10-22] MEDS: KLOR-CON PO SCH (20:39)
[2018-10-23] MEDS: MINOCIN PO SCH ×2 (02:39→15:38)
[2018-10-23] MEDS: HUMALOG SUBQ SCH ×2 (06:27→11:53)
--- NOTE | 2018-10-23 06:35 | GENERAL SURGERY PROGRESS NOTE ---
DATE: 10/23/2018 SUBJECTIVE: Patient seems to be doing okay. Her chest x-ray yesterday showed no pneumothorax. She is breathing fine. OBJECTIVE: Vital Signs: Patient is currently afebrile. Her vital signs stable. General: No acute distress. HEENT: Normocephalic, atraumatic. Pupils equal, round, reactive to light. Mucous membranes moist. Oropharynx benign. Neck: Supple. Trachea midline. Cardiovascular: Regular rate and rhythm. Lungs: No air leak noted to the chest tube. Abdomen: Soft, nontender, nondistended. Extremities: Moves all extremities. Neurologic: Grossly intact. Skin: No signs of jaundice. Vascular: All extremities perfused. LABORATORY: None. Chest x-ray as noted above. ASSESSMENT AND PLAN: A 73-year-old female with right-sided pneumothorax status post CT-guided lung biopsy. Right-sided pneumothorax. At this time lung was inflated. No obvious pneumothorax. Removed chest tube at the bedside this morning during maximal inspiration in 1 clean motion. Patient tolerated well. Put occlusive dressing over the area with a chest x-ray at 9:30 this morning. If it seems to still be normal, we will plan on discharge today. cc: MD Clayton Palmer MD
[2018-10-23 07:32] LABS: BASO# 0.02 X1000 (0.0-0.2); BASO% 0.8 % (0.0-0.8); EOS# 0.24 X1000 (0.0-0.7); EOS% 9.2 % (0.0-10.0); HEMATOCRIT 28.6 % (37.0-47.0); HEMOGLOBIN 8.7 g/dL (12.0-16.0); LYMPH# 0.48 X1000 (1.2-3.4); LYMPH% 18.5 % (20.5-51.1); MCH 30.3 PG (27-31); MCHC 30.4 g/dL (33-37); MCV 99.7 FL (81-99); MONO# 0.26 X1000 (0.11-0.59); MPV 11.1 FL (7.4-10.4); NEUT% 61.5 % (42.2-75.2); PLT 166 X1000 (130-400); RBC 2.87 XMIL (4.2-5.4); RDW 14.3 % (11.5-14.5)
[2018-10-23 07:39] LABS: CALCIUM 8.7 mg/dL (8.8-10.2); CREATININE 1.5 mg/dL (0.5-0.9); MAGNESIUM 2.3 mg/dL (1.5-2.7); POTASSIUM 3.7 mmol/L (3.5-5.1)
[2018-10-23] MEDS ORDERED: LASIX PO SCH (09:00)
--- NOTE | 2018-10-23 09:50 | Diag Imaging Result Doc PS360 ---
EXAM: CHEST-PORTABLE HISTORY: chest tube removal TECHNIQUE: Chest single view COMPARISON: 10/22/2018 FINDINGS: The lungs remain well expanded. Interval removal of the right-sided chest tube. No pneumothorax identified. Irregular masslike area in the mid right lung is unchanged. Sternal wires are present with a left-sided pacemaker. Mild cardiomegaly. IMPRESSION: No pneumothorax following removal of the right-sided chest tube. Electronically signed by Higinio Serrano 10/23/2018 9:48 AM
[2018-10-23] MEDS: PERIDEX MT SCH (10:58)
[2018-10-23] MEDS: LIVALO PO SCH (10:59)
[2018-10-23] MEDS: LEVAQUIN PO SCH (11:02)
[2018-10-23] MEDS: KEPPRA PO SCH (11:02)
[2018-10-23] MEDS: FLEXERIL PO SCH (11:02)
[2018-10-23] MEDS: CALTRATE 600 PO SCH (11:02)
[2018-10-23] MEDS: PRISTIQ ER PO SCH (11:03)
[2018-10-23] MEDS: WELLBUTRIN XL PO SCH (11:03)
[2018-10-23] MEDS: ENTRESTO 24 MG-26 MG TABLET PO SCH (11:03)
[2018-10-23] MEDS: VITAMIN D PO SCH (11:03)
--- NOTE | 2018-10-23 13:55 | CONSULTATION ---
DATE OF CONSULTATION: 10/22/2018 HISTORY OF PRESENT ILLNESS: Ms. Treviño is a pleasant woman who is well known to our clinic for a right upper lung nodule that was enlarging. She was referred to Dr. Ricardo in Radiology for a CT- guided biopsy. She successfully had that biopsy on the date of admission but subsequently developed a 15% pneumothorax. On observation, her pneumothorax enlarged to approximately 30% and she became symptomatic. Dr. Akins was kind enough to see her and placed a PleurX catheter which has subsequently resolved her pneumothorax. On this morning's chest x-ray, she was noted to have no residual pneumothorax. Her symptomatic shortness of breath has resolved as well. She is hoping to have her catheter removed in the next 24 hours. We will follow along and leave further recommendations as indicated. I truly appreciate Dr. Ricardo and Dr. Akins with their assistance in the care of this pleasant patient with an unfortunate pneumothorax. cc: MD Jeni Palmer MD Omar J. Sosa-Chirinos, MD
[2018-10-23 15:54] VITALS: BP 113/55
--- NOTE | 2018-10-23 17:57 | PROGRESS NOTE ---
DATE: 10/23/2018 SUBJECTIVE: This patient is doing fine, no major complaints. The chest tube has been removed today but the new x-ray did not show any pneumothorax. OBJECTIVE: Vital Signs: Temperature 97.9 degrees, pulse 74, respiratory rate 16, blood pressure 113/55, oxygen saturation 90 on room air. HEENT: Head normocephalic. No trauma. PERRLA. Neck: Supple. No JVD. No masses. Central trachea. Chest: Clear to auscultation. Some crepitus at the right base. Abdomen: Soft, nontender, nondistended. No hepatosplenomegaly. Extremities: No edema. No clubbing. No cyanosis. Her left leg has a wound that looks clean, dry, and intact which is old from previous surgery. Neurological: The patient is alert and oriented x3. No focal deficits. LABORATORY: WBC 2.6, hemoglobin 8.7, hematocrit 28.6, platelets 166,000. Sodium 139, potassium 3.7, chloride 104, bicarbonate 26, BUN 20, creatinine 1.5, glucose 88, calcium 8.7, magnesium 2.3. ASSESSMENT AND PLAN: 1. Pneumothorax, status post lung biopsy. Seems to have resolved. Chest tube has been removed. New x-ray did not show any pneumothorax. Probably she will be discharged home today. 2. Chronic kidney disease. Will monitor. She has been up and down since 2013. Case has been discussed with the patient and the family at the bedside. 3. Seizure disorder. She is on her regular medications. 4. Chronic wound on her left lower extremity. This has been monitored by her doctor. I will not make any changes. cc: Main Ugalde MD
--- NOTE | 2018-10-24 22:10 | DISCHARGE SUMMARY ---
ADMISSION DATE: 10/21/2018 DISCHARGE DATE: 10/23/2018 ADMITTING PHYSICIAN: Enoch Akins. CONSULTATION: The hospitalist service for medical management, Jeni Iraheta with Oncology. PROCEDURES: On 10/21/2018 patient underwent chest tube placement on the right side. BRIEF HISTORY AND COURSE OF STAY: 73-year-old female who was admitted to undergo a CT-guided lung biopsy. Her post lung biopsy course was complicated by pneumothorax. I was asked to see the patient, admit the patient. I placed a right-sided chest tube which relieved her pneumothorax. We kept the chest tube in for 24 hours to suction then placed it to water seal. Subsequent chest x-ray showed resolution of the pneumothorax. On the day of discharge removed her chest tube, got a chest x-ray 4 hours later, which showed no pneumothorax. She was up and ambulating having no shortness of breath, doing well. We gave her instructions for discharge. DISCHARGE CONDITION: Stable. DISPOSITION: Home. INSTRUCTIONS: Patient told to not fly in an airplane or go scuba diving or any other activities that would change the air pressure dramatically. She was told to follow up with Dr. Akins in 1 to 2 weeks. cc: MD Main Palmer MD
== END 2018-10-23 16:45 | disposition home or self-care (01) | DRG 200 ==
LOC: OPS 06:50 → 4N 06:50 → SUATTDRO 13:31 → OBSVTOIN 13:31
PROVIDERS: ADMIT Internal Medicine; ATTEND Surgery

== ENCOUNTER 2019-02-11 16:08 | Inpatient (IN) ==
--- NOTE | 2019-02-11 18:07 | Diag Imaging Result Doc PS360 ---
EXAM: XRAY PELVIS W/HIP 2-3VW RT 02/11/2019 HISTORY: fall TECHNIQUE: AP pelvis and right hip two views COMMENT: There is generalized osteopenia. There is an intertrochanteric fracture of the right femur. There has been previous internal fixation of the proximal left femur. IMPRESSION: Intertrochanteric fracture of the right femur. Electronically signed by Jimi Borrero 02/11/2019 6:05 PM
[2019-02-11] MEDS ORDERED: ZOFRAN IV ONE (18:10)
[2019-02-11] MEDS ORDERED: DILAUDID IV ONE ×3 (18:10→22:57)
--- NOTE | 2019-02-11 18:26 | Diag Imaging Result Doc PS360 ---
EXAM: CHEST-1 VIEW 02/11/2019 HISTORY: surg clearance TECHNIQUE: AP portable at 1818 COMMENT: There is increasing opacification in the perihilar portion of the right upper lobe compared to 10/23/2018. There is cardiomegaly. IMPRESSION: Increasing postobstructive pneumonitis versus neoplastic change in the right upper lobe. Cardiomegaly. Electronically signed by Jimi Borrero 02/11/2019 6:24 PM
--- NOTE | 2019-02-11 18:29 | EKG Report ---
Test Performed on : 02/11/2019 4:47:22 PM Test Reason : surgery clearance Blood Pressure : / mmHG Vent. Rate : 076 BPM Atrial Rate : 076 BPM P-R Int : 000 ms QRS Dur : 104 ms QT Int : 396 ms P-R-T Axes : 031 075 222 degrees QTc Int : 445 ms Ventricular-paced rhythm Abnormal ECG When compared with ECG of 21-OCT-2018 17:21, Vent. rate has increased BY 16 BPM Unconfirmed Result
--- NOTE | 2019-02-11 18:44 | PROVIDER DOCUMENTATION ---
This chart was entered by Alyce Estrada Scribe, acting as scribe for Troy Morales MD. HPI-Musculoskeletal Pain/Inj - GENERAL Chief Complaint: Fall Stated Complaint: FALL Time Seen by Provider: 02/11/19 16:29 Source: patient - HX OF PRESENT ILLNESS-MUSKULOSKELTAL Nature of Presenting Problem: Patient is a 73 year old female who presents to the ED via EMS with right hip pain. States she became dizzy and fell today. Patient does not report head injury or LOC. Quality of Pain: reports: aching Severity in ED: mild Onset/Duration: just prior to arrival Timing: still present Modifying Factors: worse with: movement Any recent injury?: Yes (fall ) Locality of Occurance: Home Similar Symptoms Previously?: Yes Recently seen or treated by another doctor?: Yes - FALL INJURY Location of Pain/Injury: reports: lower extremity (right hip) Pain Radiation: reports: no radiation Reason for Fall: reports: other (dizziness) Injury Associated Symptoms: reports: trouble walking - HIP/PELVIS PAIN/INJURY Hip Pain Location: reports: hip (R) Context / Method of Injury: reports: fall - LOWER EXTREMITY PAIN/INJURY Lower Extremities Pain: hip: right Context / Method of Injury: reports: fell Review of Systems - Adult - REVIEW OF SYSTEMS - ADULT Constitutional: reports: no symptoms reported Eyes: reports: no symptoms reported Ears, Nose, Mouth & Throat: reports: no symptoms reported Cardiovascular: reports: no symptoms reported Respiratory: reports: no symptoms reported Gastrointestinal: reports: no symptoms reported Genitourinary: reports: no symptoms reported Musculoskeletal: reports: see HPI, other (right hip pain). denies: back pain, muscle aches, neck pain Integumentary: reports: no symptoms reported Neurological: reports: see HPI, dizziness/vertigo (dizziness). denies: headache/migraines, syncope Psychiatric: reports: no symptoms reported Endocrine: reports: no symptoms reported Hematologic/Lymphatic: reports: no symptoms reported Allergic/Immunologic: reports: no symptoms reported All Other Systems: Reviewed and Negative Past History - Adult - PAST MEDICAL HISTORY-ADULT Review of Records: reports: Old Records Reviewed, Nursing Assessment Review, Medications Reviewed, Social history reviewed & non-contributory. Major Childhood Illnesses: reports: denies history Cardiovascular: reports: cardiac disease, A-Fib, CHF, HTN, hyperlipidemia, pacemaker Respiratory: reports: cancer Gastrointestinal: reports: ulcer Obstetrical/Gynecological: reports: denies history Genitourinary: reports: denies history Musculoskeletal: reports: denies history Neurological: reports: Seizures/Epilepsy Psychiatric: reports: anxiety Endocrine/Immune: reports: denies history Other Conditions: reports: denies history - PRIOR SURGERIES/PROCEDURES Surgical/Procedure History: reports: appendectomy, CABG, cardiac stent (x4), pacemaker (defib), tonsillectomy - IMMUNIZATION STATUS Childhood Immunizations: See Nurse Assessment Flu Vaccine: See Nurse Assessment - FAMILY HISTORY Family History: reviewed, not pertinent - SOCIAL HISTORY Smoking: cigarettes (former) Substance Use: alcohol Alcohol Use Frequency: occasionally Living Situation: family Physical Exam-Injury Related - Physical Exam-Injury Related Initial Vital Signs Reviewed: Yes General Appearance: alert, no apparent distress. negative: lethargic Head, Ears, Nose, Mouth & Throat: normocephalic/atraumatic, moist mucous membranes. negative: angioedema Respiratory: chest non-tender, lungs clear, normal breath sounds. negative: rhonchi, wheezing Cardiovascular: normal peripheral pulses, regular rate, rhythm. negative: tachycardia Extremity: deformity (left lower leg from prior fracture.), tenderness (right hip). negative: pulse deficit, swelling Integumentary: normal color, warm/dry. negative: ecchymosis, abrasion, laceration Neurologic: grossly normal. negative: aphasia, facial droop Psych/Mental Status: normal mood/affect, oriented x 3. negative: anxious Progress - PLAN OF CARE/RESULTS Progress/Plan/Lab Results: Vital Signs - 8 hr 02/11/19 16:58 Temperature 98.4 F Pulse Rate 78 Respiratory Rate 18 Blood Pressure 142/79 O2 Sat by Pulse Oximetry 97 Orders Category Date Time Status XRAY PELVIS W/HIP 2-3VW RT [RAD] Stat Exams 02/11/19 17:43 Completed cxr [CHEST-1 VIEW] [RAD] Stat Exams 02/11/19 18:09 Completed CBC WITH ELECTRONIC DIFF [HEME] Stat Lab 02/11/19 17:43 Uncollected COMPREHENSIVE METABOLIC PANEL [CHEM] Stat Lab 02/11/19 17:43 Uncollected PT [PROTIME WITH INR] [COAG] Stat Lab 02/11/19 17:43 Uncollected PTT [COAG] Stat Lab 02/11/19 17:43 Uncollected URINALYSIS W/POSS RFLX CULT [URINALYSIS] Stat Lab 02/11/19 17:43 Uncollected Hydromorphone [Dilaudid] Med 02/11/19 18:10 Discontinued 0.5 mg IV NOW ONE Ondansetron [Zofran] Med 02/11/19 18:10 Discontinued 4 mg IV NOW ONE EKG [EKG] Stat Ther 02/11/19 17:43 Draft - EKG 1 Time of EKG reading by physician:: 16:47 EKG Read and Signed by:: Troy Morales EKG Interpretation (*Must complete 3 of following elements*): Abnormal Rate: 76 Rhythm: ventricular-paced [place]: normal Comments: abnormal ECG - XRAY 1 XRAY: Right XRAY Study: Pelvis, Hip Impression: See EMR Report ( EXAM: XRAY PELVIS W/HIP 2-3VW RT 02/11/2019 HISTORY: fall TECHNIQUE: AP pelvis and right hip two views COMMENT: There is generalized osteopenia. There is an intertrochanteric fracture of the right femur. There has been previous internal fixation of the proximal left femur. IMPRESSION: Intertrochanteric fracture of the right femur. Electronically signed by Jimi Borrero 02/11/2019 6:05 PM 02/11/191804 Interpreting Physician: Jimi Borrero MD Dictated Date/Time: 02/11/191803 cc: Troy Morales MD; Fabián Shore MD) - CONSULTS/PCP/HOSPITALIST Notification #1 *Consult/PCP/Hospitalist*: Kamila Stein [employer]ST[employer] for hospitalist Consult Disposition: Will see in ED, Admit Departure - Departure Date of Disposition Decision: 02/11/19 Time of Disposition Decision: 18:43 DIAGNOSIS: Intertrochanteric fracture of right hip Disposition: ADMITTED INPATIENT 09 Certified Medical Emergency: Emergent Condition: Fair Referrals and Follow-Ups: Fabián Shore MD [Primary Care Provider] - - Critical Care Note This patient required my direct & personal management of CC.: No Attestation - Physician/ RUDDY Attestation Patient care was provided by Advanced Practice Provider:: No The physician spent face to face time with patient:: Yes Advanced Practice Provider documentation review:: Supervising physician onsite and consulted in the evaluation and care of this patient. The physician did have a face to face encounter with the patient. This chart was documented by the indicated scribe, (Alyce Estrada, Marsha) and accurately reflects the services I performed and decisions made by me, Troy Morales MD, as attested by the provider's signature.
[2019-02-11] MEDS ORDERED: BLISTEX MEDICATED BERRY LIP BALM TOP ONE (18:48)
[2019-02-11 19:02] LABS: BASO# 0.01 X1000 (0.0-0.2); BASO% 0.1 % (0.0-0.8); EOS# 0.06 X1000 (0.0-0.7); EOS% 0.4 % (0.0-10.0); HEMATOCRIT 37.9 % (37.0-47.0); IMM GRAN# 0.06 X1000 (0.0-0.04); IMM GRAN% 0.4 % (0.0-0.5); LYMPH# 0.48 X1000 (1.2-3.4); LYMPH% 3.4 % (20.5-51.1); MCH 28.7 PG (27-31); MCHC 31.7 g/dL (33-37); MCV 90.7 FL (81-99); MONO# 0.88 X1000 (0.11-0.59); MONO% 6.2 % (1.7-9.3); MPV 11.6 FL (7.4-10.4); NEUT# 12.81 X1000 (1.4-6.5); NEUT% 89.5 % (42.2-75.2); PLT 173 X1000 (130-400); RBC 4.18 XMIL (4.2-5.4); RDW 16.7 % (11.5-14.5)
[2019-02-11 19:08] LABS: INR 1.11; PROTIME 14.5 Seconds (11.0-16.0)
[2019-02-11 19:23] LABS: ALB/GLOB RATIO 2.4; CALCIUM 8.7 mg/dL (8.8-10.2); CREATININE 1.1 mg/dL (0.5-0.9); POTASSIUM 3.6 mmol/L (3.5-5.1); TOTAL BILIRUBIN 0.41 mg/dL (0.20-1.00); TOTAL PROTEIN 5.7 g/dL (6.3-8.3)
[2019-02-11 20:10] LABS: URINE SOURCE CATH
[2019-02-11 20:17] LABS: BILIRUBIN URINE NEGATIVE (NEGATIVE); BLOOD URINE NEGATIVE (NEGATIVE); COLOR YELLOW; GLUCOSE URINE NEGATIVE (NEGATIVE); KETONE URINE NEGATIVE (NEGATIVE); LEUKOCYTES URINE NEGATIVE (NEGATIVE); NITRITE URINE NEGATIVE (NEGATIVE); PH URINE 5.5; PROTEIN URINE TRACE mg/dL (NEGATIVE); SP GRAVITY URINE 1.021; TURBIDITY URINE CLEAR (CLEAR); UR EPITHELIAL CELLS <10 /HPF (<10); URINE BACTERIA NEGATIVE /HPF; URINE RBC <10 /HPF (<10); URINE WBC <10 /HPF (<10); UROBILINOGEN URINE NORMAL (NORMAL)
[2019-02-11] MEDS ORDERED: LEVAQUIN PO SCH (20:30)
[2019-02-11] MEDS ORDERED: ZOFRAN IV PRN (21:33)
[2019-02-11] MEDS ORDERED: DILAUDID IV PRN (21:33)
[2019-02-11] MEDS: TYLENOL PO PRN (22:24)
[2019-02-11] MEDS: NS 1,000 ML IV SCH (22:24)
[2019-02-12] MEDS: DILAUDID IV PRN ×6 (01:18→23:18)
[2019-02-12] MEDS ORDERED: PROTONIX PO SCH (07:00)
--- NOTE | 2019-02-12 07:08 | HISTORY AND PHYSICAL ---
PRIMARY CARE PHYSICIAN: Dr. Fabián Shore. SIDE LASTER STAPLE: Dr. Oconnor at [facility]. ORTHOPEDIST: Dr. Sesay in [place]. CHIEF COMPLAINT: Fall with hip pain. HISTORY OF PRESENT ILLNESS: Ms. Treviño is a 73-year-old female with a past medical history of coronary artery disease status post CABG, paroxysmal atrial fibrillation with a pacemaker and chronic anticoagulation, congestive heart failure, uterine and vulva cancer, diabetes mellitus type 2 and left leg injury with surgical repair who comes in after having a fall at home. States that she became dizzy and fell. She did not hit her head. Did not have loss of consciousness. She is having right hip pain that is worse with movement and difficulty ambulating. X-ray was obtained in the emergency room that showed a right intertrochanteric femur fracture. She will be admitted for surgical consultation. PAST MEDICAL HISTORY: See HPI. PREVIOUS SURGICAL HISTORY: 1. CABG in 1990. 2. Tonsillectomy. 3. Appendectomy. 4. Pacemaker implantation with 3 generator changes as well as a defibrillator. 5. Cardiac stenting x4. 6. Left leg surgery with hardware implantation. SOCIAL HISTORY: Quit smoking in 1997, was a 1-2 pack a day smoker for 20+ years. No alcohol or illicit drugs. Lives at home with family. FAMILY HISTORY: Positive for lung cancer, coronary artery disease. ALLERGIES: Celebrex. HOME MEDICATIONS: 1. Vitamin D3 2000 units p.o. daily. 2. Lasix 40 mg p.o. b.i.d. 3. Bussey 7.5 q.4 hours. 4. Keppra 500 mg p.o. b.i.d. 5. Levaquin 250 mg p.o. daily. 6. Minocycline 100 mg p.o. q.12. 7. Fish oil 1000 mg p.o. daily. 8. Protonix 40 mg p.o. b.i.d. 9. Livalo 2 mg p.o. daily. 10.Potassium chloride 20 mEq p.o. at bedtime. 11.Entresto 24 mg/26 mg tablet. REVIEW OF SYSTEMS: Fourteen point review of systems conducted with the patient and she also states that she has had a recent cough. Other pertinent positives listed above in the HPI. All other systems reviewed and found to be negative. PHYSICAL EXAMINATION: VITAL SIGNS: Temperature 97.9 degrees, pulse 70, respirations 16, blood pressure 131/92, oxygen saturation 94% on room air. GENERAL: 73-year-old female lying in the ER stretcher. She is in a lot of pain with her right hip and in no acute distress. She is alert and oriented x3. HEENT: Head is atraumatic, normocephalic. Pupils equal, round and reactive to light. Extraocular eye movement is intact. Sclerae anicteric. Conjunctivae pink. Oral mucosa is moist. NECK: Supple. No JVD. No thyromegaly. Trachea is midline. No cervical lymphadenopathy. CARDIAC: S1, S2 appreciated. No murmurs, gallops, rubs. LUNGS: Clear to auscultation bilaterally. No rhonchi, wheezes, rales. Symmetric rise and fall of respirations. ABDOMEN: Soft, nondistended, nontender. Bowel sounds present in all 4 quadrants. Normoactive. No pulsatile mass. No organomegaly. EXTREMITIES: No cyanosis, clubbing or edema. 1+ pedal pulses bilaterally. MUSCULOSKELETAL: Patient defers movement of right lower extremity related to pain. She can move her toes. Appears to be neurovascularly intact. NEUROLOGICAL: She is alert and oriented x3. Cranial nerves 2-12 grossly intact. DIAGNOSTIC DATA: X-ray of her hip and pelvis shows a right intertrochanteric femur fracture. Chest x-ray shows increasing postobstructive pneumonitis versus neoplastic change in the right upper lobe as well as cardiomegaly. LABORATORY DATA: WBC 14.30, hemoglobin 12, hematocrit 37.9, platelet count 173,000. Coags within normal limits. Sodium 137, potassium 3.6, chloride 101, carbon dioxide 24, BUN 20, creatinine 1.1, glucose 100. Urine unremarkable. ASSESSMENT AND PLAN: 1. Right intertrochanteric femur fracture. 2. Pneumonitis versus neoplastic change of the right upper lobe. 3. Seizure disorder. 4. Coronary artery disease. 5. Atrial fibrillation with pacemaker. 6. Diabetes mellitus type 2. PLAN: The patient to the surgical floor. Consult Ortho. Fingerstick blood sugar with sliding scale insulin. We will hold patient NPO for surgery. We will consult Dr. Costello with Pulmonology related to pneumonitis versus neoplastic changes in the right upper lobe. We will give Levaquin 500 mg daily. Continue patient's home statin and antihypertensives. We will give Dilaudid as needed for pain. Continue patient's Keppra. Further recommendations per patient's clinical course. Dictated by LANNY Shipley for Wilian Willingham MD cc: LANNY Shipley MD 73 y/o presenting with recent fall and hip pain. Noted to have right intertrochanteric femur fracture. CXR positive for increasing post obstructive pneumonitis versus neoplastic change in the right upper lobe. Management strategy include ortho consult for repair of fracture, antibiotics for possible pneumonitis, pulmonary evaluation. I agree with the assessment and plan of the BUILDING ADMIN. Dr. Willingham. [facility]
[2019-02-12 07:22] LABS: BASO# 0.01 X1000 (0.0-0.2); BASO% 0.1 % (0.0-0.8); EOS# 0.05 X1000 (0.0-0.7); EOS% 0.6 % (0.0-10.0); HEMATOCRIT 38.2 % (37.0-47.0); HEMOGLOBIN 11.7 g/dL (12.0-16.0); IMM GRAN# 0.04 X1000 (0.0-0.04); IMM GRAN% 0.5 % (0.0-0.5); LYMPH% 4.8 % (20.5-51.1); MCH 28.6 PG (27-31); MCHC 30.6 g/dL (33-37); MCV 93.4 FL (81-99); MONO# 0.99 X1000 (0.11-0.59); MONO% 11.8 % (1.7-9.3); MPV 11.2 FL (7.4-10.4); NEUT# 6.88 X1000 (1.4-6.5); NEUT% 82.2 % (42.2-75.2); PLT 133 X1000 (130-400); RBC 4.09 XMIL (4.2-5.4); RDW 16.9 % (11.5-14.5); WBC 8.37 X1000 (4.8-10.8)
[2019-02-12] MEDS ORDERED: DIPRIVAN 1% ONE (07:27)
[2019-02-12] MEDS ORDERED: XYLOCAINE-MPF 2% ONE (07:27)
[2019-02-12] MEDS ORDERED: FENTANYL ONE (07:27)
--- NOTE | 2019-02-12 07:30 | EKG Report ---
Test Performed on : 02/12/2019 07:21:24 AM Test Reason : chest pain Blood Pressure : / mmHG Vent. Rate : 070 BPM Atrial Rate : 070 BPM P-R Int : 000 ms QRS Dur : 172 ms QT Int : 472 ms P-R-T Axes : 000 130 016 degrees QTc Int : 509 ms Suspect unspecified pacemaker failure Ventricular-paced rhythm Abnormal ECG When compared with ECG of 11-FEB-2019 16:47, (Unconfirmed) Vent. rate has decreased BY 6 BPM Confirmed by Mark MAN, P.J.M ([id number]) on 02/13/2019 2:56:03 PM
[2019-02-12 07:49] LABS: AGAP 13; BUN 18 mg/dL (8-22); CALCIUM 8.8 mg/dL (8.8-10.2); CHLORIDE 104 mmol/L (98-107); COSMO 282; CREATININE 0.9 mg/dL (0.5-0.9); ESTIMATED GFR > 60; GLUCOSE 110 mg/dL (70-104); MAGNESIUM 2.1 mg/dL (1.5-2.7); SODIUM 140 mmol/L (136-145); TCO2 23 mmol/L (25-35)
[2019-02-12] MEDS ORDERED: KEFZOL 1 GM/D5W 1 GM/50 ML IVPB IV ONE (08:01)
[2019-02-12] MEDS ORDERED: KEFZOL 1 GM/D5W 1 GM/50 ML IVPB ONE (08:04)
[2019-02-12] MEDS: HUMALOG SUBQ SCH ×4 (08:05→21:00)
[2019-02-12] MEDS ORDERED: VERSED ONE (08:14)
[2019-02-12] MEDS ORDERED: NEO-SYNEPHRINE ONE (08:32)
[2019-02-12] MEDS ORDERED: SOLU-CORTEF ONE (08:49)
[2019-02-12] MEDS ORDERED: ZOFRAN ONE (08:49)
[2019-02-12] MEDS ORDERED: LEVAQUIN PO SCH (09:00)
[2019-02-12] MEDS ORDERED: LASIX ONE (10:10)
--- NOTE | 2019-02-12 10:55 | HISTORY AND PHYSICAL ---
CHIEF COMPLAINT: Right hip pain. HISTORY OF PRESENT ILLNESS: Ms. Treviño is a 73-year-old female who fell yesterday. She actually fractured her left hip and had what sounds like an open left ankle fracture in December of last year, and is still not 100% from that. She said the left leg sort of gave way, she fell, and injured the right hip. She was taken to the emergency department where they did x-rays and she was admitted per the hospitalist service. PAST MEDICAL HISTORY: Congestive heart failure, atrial fibrillation, status post coronary artery disease bypass grafting, uterine and vulva cancer, diabetes type 2. PAST SURGICAL HISTORY: Coronary artery bypass grafting, tonsillectomy, appendectomy, pacemaker, cardiac stenting, left hip and ankle surgery. SOCIAL HISTORY: She denies any smoking. FAMILY HISTORY: Positive for heart issues. ALLERGIES: Celebrex. MEDICATIONS: Per the medical record. REVIEW OF SYSTEMS: Positive for right hip pain. All other systems are as above. PHYSICAL EXAMINATION: GENERAL: Ms. Treviño is lying in bed this morning. Overall, pain seems controlled. She is in no acute distress. HEAD AND NECK: Normocephalic, atraumatic. RESPIRATIONS: Nonlabored breathing. CARDIOVASCULAR: Regular pulse. ABDOMEN: Nondistended. EXTREMITIES: On right lower extremity exam, she has tenderness to palpation to the right hip. She has good sensation to light touch to the toes. She has good dorsiflexion and plantarflexion of the toes. IMAGING: Two-view of the right hip shows a nondisplaced intertrochanteric hip fracture. You can see there is a TFN with a compression screw on the left side. ASSESSMENT: Right intertrochanteric hip fracture. PLAN: I have discussed Ms. Treviño and her about surgical intervention. Unfortunately, she has already been through this last year. I went over with them the procedure, risks, benefits, and potential complications. Risks include, but are not limited to infection, wound healing problems, damage to the nerves, arteries, or veins, numbness, continued pain, DVT, and anesthesia-related risks. After discussing these with the patient, she expressed understanding and wished to proceed. We will get everything set up for this morning. She is NPO. cc: Elias Helton MD
--- NOTE | 2019-02-12 10:59 | OPERATIVE NOTE ---
PROCEDURE DATE: 02/12/2019 PREOPERATIVE DIAGNOSIS: Right intertrochanteric hip fracture. POSTOPERATIVE DIAGNOSIS: Right intertrochanteric hip fracture. PROCEDURE: Right trochanteric femoral nailing. SURGEON: Dr. Elias Helton. DYE BECK REEL OPERATOR: None. ANESTHESIA: Spinal. ESTIMATED BLOOD LOSS: About 50 mL. IMPLANTS: Synthes 11 x 360 trochanteric femoral nail. DISPOSITION: To PACU, hemodynamically stable. INDICATION FOR PROCEDURE: Ms. Treviño is a 73-year-old female who fell yesterday, came to the ER, was diagnosed with a hip fracture, admitted per the hospitalist service. She was made n.p.o. I discussed with her and her about operative intervention. They expressed understanding and wished to proceed. DESCRIPTION OF THE PROCEDURE: Ms. Treviño was identified in the preoperative holding area. The right hip was marked as correct surgical site. She was then wheeled to the operating room, kept supine on her bed. All bony prominences well padded. She received spinal anesthesia per Anesthesia. After adequate anesthesia, we then moved her to the traction table. Right lower extremity then prepped with chlorhexidine gluconate scrub and then ChloraPrep, and draped in normal sterile fashion. Surgical pause was performed. We identified the correct patient, correct side, and the correct procedure. Preop antibiotics were given. I started with an incision just proximal to the greater trochanter. Dissection was carried down. I got my position with [place]. I advanced my guidewire in and drilled it, and then got my ball-tip guidewire all the way down. I measured. We then reamed to a size 12. We then put a 11 x 360 nail down. I then made a small incision on the lateral aspect of the thigh and got my guidewire center-center in the head. I measured it, drilled it, and then put a helical blade up. We locked it into place. I then took all the outrigger guide off. Final images were taken which showed that we had really good reduction with AP and lateral views. Hardware all looked to be in good position. We elected not to put a distal screw since the lateral wall was intact really well. I then closed everything in a layered fashion; 0 Vicryl for the deep layer, 2-0 Vicryl for the subcutaneous, and jorge on the skin. Island dressings were placed. She was then moved from the OR table to her own bed, and taken to the PACU in stable condition. PLAN: Postop, she will be weight bear as tolerated, right lower extremity. cc: Elias Helton MD
--- NOTE | 2019-02-12 11:17 | PROGRESS NOTE ---
DATE: 02/12/2019 SUBJECTIVE: Ms. Treviño fell and had hip pain. A 73-year-old female with past medical history of coronary artery disease status post CABG, paroxysmal atrial fibrillation with a pacemaker, chronic anticoagulation, congestive heart failure, uterine and vulvar cancer, diabetes mellitus type 2, had left leg injury and surgical repair, comes in after having a fall at home, became dizzy and fell. She did hit her head, but did not have any loss of consciousness. Having right hip pain that is worse with movement and difficulty ambulating. PAST SURGICAL HISTORY: 1. CABG with bypass in 1990. 2. Tonsillectomy. 3. Appendectomy. 4. Pacemaker implantation, 3 generator changes with a defibrillator. 5. Cardiac stenting x4. 6. Left leg surgery with hardware implantation. ASSESSMENT AND PLAN: 1. Right intertrochanteric femur fracture. She went for surgery today, open reduction internal fixation, and did well. 2. Pneumonitis versus neoplastic changes in the right upper lobe, which we need to follow up with. 3. Seizure disorder. Aware. 4. Coronary artery disease, status post coronary artery bypass graft. 5. Atrial fibrillation with pacemaker. 6. Diabetes mellitus type 2. Will follow her pattern sugars. REVIEW OF LABORATORY DATA: This morning, sodium 140, potassium 4.0, chloride 104, BUN 18, creatinine 0.9, and it looks good. CBC: White blood cell count 8370, hematocrit 38, platelet count 133,000. cc: Rancho Curtis MD
[2019-02-12] MEDS: LOVENOX SUBQ SCH (11:40)
[2019-02-12] MEDS: VITAMIN D PO SCH (11:46)
[2019-02-12] MEDS: LIVALO PO SCH (11:46)
[2019-02-12] MEDS: PROTONIX PO SCH ×2 (11:47→20:57)
[2019-02-12] MEDS: KEPPRA PO SCH ×2 (11:47→20:57)
[2019-02-12] MEDS: ENTRESTO 24 MG-26 MG TABLET PO SCH ×2 (11:47→20:57)
[2019-02-12] MEDS: OXY IR PO PRN (13:05)
[2019-02-12] MEDS: LASIX PO SCH ×2 (13:44→20:57)
[2019-02-12] MEDS: MORPHINE IV PRN (14:01)
--- NOTE | 2019-02-12 16:13 | CONSULTATION ---
DATE OF CONSULTATION: 02/12/2019 REQUESTING PROVIDER: LANNY Shipley. REASON FOR CONSULTATION: Pneumonitis versus mass. HISTORY OF PRESENT ILLNESS: This is a 73-year-old female with a medical history of recently diagnosed lung cancer, coronary artery disease, paroxysmal atrial fibrillation, congestive heart failure, uterine and vulvar cancer, diabetes mellitus type 2, and seizures. She presented to the ER yesterday afternoon after a fall at home. X-ray in the ER showed a right intertrochanteric femur fracture. For surgical clearance, a chest x-ray was also done which showed increasing postobstructive pneumonitis versus neoplastic change in the right upper lobe and cardiomegaly. The patient underwent a right trochanteric femoral nailing this morning by Dr. Helton. She is currently lying in bed with no acute distress noted. She has been back from the surgery for about 3 hours. She does complain of some pain in her right hip. She states generally she feels pretty good except that she has some generalized weakness and dizziness, which per patient is the reason she fell. She reports no cough, fever, chill, chest pain, palpitation, bowel habit change, nausea, poor appetite, noticeable weight change, or urination discomfort. PAST MEDICAL AND SURGICAL HISTORY: 1. Recently diagnosed lung cancer. The patient had a chest CT-guided biopsy done on October 21, 2018. Pathology showed adenocarcinoma, moderately differentiated. The biopsy apparently was complicated by a small pneumothorax which required placement of a chest tube. The patient has been seen by Dr. Iraheta outpatient. She reports that some therapy has been planned, but currently is held secondary to her cardiac condition. She states that she has a DrJonathan appointment next week for cardiac reevaluation. 2. Coronary artery disease status post CABG in 1990 and cardiac stenting x 4. 3. Paroxysmal atrial fibrillation status post pacemaker implantation with 3 generator changes, as well as a defibrillator. She is also on chronic anticoagulation. 4. Congestive heart failure. 5. Uterine and vulvar cancer. 6. Diabetes mellitus type 2. 7. Left foot injury with multiple surgeries including hardware implantation associated with infection. The patient is on chronic antimicrobial therapy. 8. New onset seizure in July 2018. 9. Status post tonsillectomy. 10. Status post appendectomy. SOCIAL HISTORY: The patient is a former smoker. She used to smoke 1 to 2 packs per day for over 20 years. She quit smoking in 1997. She has no history of alcohol or illicit drug use. She lives at home with her family. FAMILY HISTORY: Positive for lung cancer and coronary artery disease. ALLERGIES: Celecoxib. REVIEW OF SYSTEMS: A 10-point review of systems was conducted and the pertinent is listed within the HPI, otherwise noncontributory. PHYSICAL EXAMINATION: Vital Signs: Temperature 97.6 degrees, blood pressure 129/81, pulse 69, respiratory rate 14, oxygen saturation 100% on nasal cannula at 3 L. General: Chronically ill appearing, lying in bed with no acute distress noted. Very present and cooperative. HEENT: Atraumatic, normocephalic. Trachea midline. Mucosa pink and moist. Respiratory: Even and unlabored. Symmetrical excursion. Clear to auscultation bilaterally. Cardiovascular: Regular rate and rhythm. Gastrointestinal: Soft, nontender, nondistended. Normoactive bowel sounds in all 4 quadrants. Extremities: No pedal edema. No cyanosis. No clubbing. Dorsalis pedis 2+ bilaterally. Neurologic: Alert and oriented x4. Speech fluent. Follows commands. LAB DATA: White blood cell 8.37, hemoglobin 11.7, hematocrit 38.2, platelet 133,000. Sodium 140, potassium 4.0, chloride 104, carbon dioxide 23, BUN 18, creatinine 0.9, glucose 110. ASSESSMENT: This is a 73-year-old female with a medical history of recently diagnosed lung cancer, coronary artery disease, paroxysmal atrial fibrillation, congestive heart failure, uterine and vulvar cancer, diabetes mellitus type 2, and seizures. She has been admitted since yesterday with a right intertrochanteric femur fracture after a fall at home. 1. Recently diagnosed lung cancer. Follow up with Dr. Iraheta outpatient. The patient reports that the therapy has been pending secondary to her cardiac condition. 2. Right intertrochanteric femur fracture. The patient underwent right trochanteric femoral nailing this morning. PLAN: 1. We will repeat chest CT scan. 2. The patient will follow up with Dr. Iraheta outpatient. 3. No further recommendations at this time. Thank you for the courtesy of this consult. Dictated by LANNY Amezquita for Rachel Miranda MD cc: LANNY Amezquita MD [facility]
[2019-02-12] MEDS: KEFZOL 1 GM/D5W 1 GM/50 ML IVPB IV SCH (16:57)
[2019-02-12] MEDS: NS 1,000 ML IV SCH (16:57)
--- NOTE | 2019-02-12 18:50 | Diag Imaging Result Doc PS360 ---
EXAM: CT THORAX W/O CONTRAST HISTORY: SOB TECHNIQUE: CT chest without contrast. COMPARISON: 10/08/2018 FINDINGS: There are sternal wires and left-sided pacemaker. The heart is markedly enlarged. Trace pleural fluid. Prominent atherosclerosis. There is at least mild pulmonary edema. No aortic aneurysm. The calcified mediastinal and hilar lymph nodes with scattered granuloma. Approximately 2.6 cm mass in the right upper lobe has a similar appearance to the prior exam. No consolidation. Tiny infiltrates posteriorly in the right upper lobe. IMPRESSION: 1.Stable right upper lobe mass 2.Cardiomegaly with mild pulmonary edema 3.Prominent atherosclerosis 4.Tiny right upper lobe infiltrate 5.There is evidence of a prior granulomatous infection This exam was performed using automated exposure control, adjustment of mA or kV according to patient size, and/or use of iterative reconstruction technique. Electronically signed by Higinio Serrano 02/12/2019 6:47 PM
[2019-02-12] MEDS: MINOCIN PO SCH (20:55)
[2019-02-12] MEDS: PERIDEX MT SCH (20:57)
[2019-02-12] MEDS: KLOR-CON PO SCH (20:57)
[2019-02-12] MEDS: RANEXA PO SCH (20:57)
[2019-02-13] MEDS: OXY IR PO PRN ×2 (00:12→22:02)
[2019-02-13] MEDS: KEFZOL 1 GM/D5W 1 GM/50 ML IVPB IV SCH ×2 (00:13→08:50)
[2019-02-13] MEDS: TYLENOL PO PRN (00:13)
[2019-02-13] MEDS: ENTRESTO 24 MG-26 MG TABLET PO SCH ×3 (00:21→21:02)
[2019-02-13] MEDS: DILAUDID IV PRN ×3 (06:16→18:44)
[2019-02-13] MEDS: LOVENOX SUBQ SCH (06:16)
[2019-02-13] MEDS: HUMALOG SUBQ SCH ×4 (07:00→21:00)
[2019-02-13 07:03] LABS: HEMATOCRIT 29.5 % (37.0-47.0)
[2019-02-13 07:21] LABS: BUN 13 mg/dL (8-22); CALCIUM 7.9 mg/dL (8.8-10.2); CREATININE 0.9 mg/dL (0.5-0.9); ESTIMATED GFR > 60; GLUCOSE 111 mg/dL (70-104); TCO2 24 mmol/L (25-35)
[2019-02-13 07:56] LABS: POTASSIUM 3.8 mmol/L (3.5-5.1); SODIUM 138 mmol/L (136-145)
[2019-02-13 07:57] LABS: CHLORIDE 103 mmol/L (98-107)
[2019-02-13 07:58] LABS: AGAP 11
[2019-02-13 08:00] LABS: COSMO 277
[2019-02-13] MEDS: FERROUS SULFATE PO SCH (08:47)
[2019-02-13] MEDS: VITAMIN D PO SCH (08:47)
[2019-02-13] MEDS: RANEXA PO SCH ×2 (08:47→21:08)
[2019-02-13] MEDS: MINOCIN PO SCH ×2 (08:47→21:03)
[2019-02-13] MEDS: LEVAQUIN PO SCH (08:48)
[2019-02-13] MEDS: PROTONIX PO SCH ×2 (08:48→21:08)
[2019-02-13] MEDS: VITAMIN B-12 PO SCH (08:48)
[2019-02-13] MEDS: LIVALO PO SCH (08:49)
[2019-02-13] MEDS: KEPPRA PO SCH ×2 (08:50→21:02)
[2019-02-13] MEDS: LASIX PO SCH ×2 (08:51→21:09)
[2019-02-13] MEDS: PERIDEX MT SCH ×2 (08:52→21:02)
[2019-02-13] MEDS: MORPHINE IV PRN ×3 (08:53→15:20)
--- NOTE | 2019-02-13 09:03 | ORTHOPAEDICS PROGRESS NOTE ---
DATE: 02/13/2019 SUBJECTIVE: No acute events overnight. Patient is reporting some pain in her right thigh since surgery. She has not gotten up with therapy to ambulate yet. She is tolerating a diet. She is urinating voluntarily. OBJECTIVE: LABORATORY DATA: Hematocrit is 30. Vital signs: Afebrile. Vital Signs stable. Extremities: Examination of the right lower extremity shows surgical dressing to be clean, dry, intact. Thigh and calf are soft and compressible. She has pain in the hip with log roll. Motor is intact EHL, tibialis anterior, gastrocsoleus complex. Sensation intact to light touch L3 to S1. Dorsalis pedis pulse palpable. ASSESSMENT: A 73-year-old female status post closed reduction and intramedullary nailing of right intertrochanteric femur fracture. Postoperative day 1. PLAN: 1. Patient will be weightbearing as tolerated to the right lower extremity. Physical Therapy to mobilize with a rolling walker. 2. Ice to right thigh as needed for pain. 3. Lovenox for DVT prophylaxis. The patient will need chemical DVT prophylaxis for 6 weeks from the date of surgery. 4. Appreciate Hospitalist recommendations. 5. Disposition per primary team. Patient will work with Physical Therapy today and we will see how well she mobilizes. I think she would likely benefit from rehab placement. She will follow up with Dr. Helton in 2 weeks for wound check and x-rays.
--- NOTE | 2019-02-13 12:57 | PROGRESS NOTE ---
DATE: 02/13/2019 SUBJECTIVE: Today Ms. Treviño refers to be doing okay. She was actually having lunch at the time of the encounter. Still having mild pains, but for most part she feels better. OBJECTIVE: Vital Signs: Blood pressure is 117/67, pulse of 69, respiration is 17, temperature is 98.6 degrees. General examination: Ms. Treviño is a 77-year-old female. She is in bed, no distress. HEENT: Mucosa is pink and moist. Anicteric. Acyanotic. Neck: Neck is supple. Chest: Clear to auscultation. No crepitations. No rhonchi. Cardiovascular: Regular rate and rhythm. There is a pacemaker generator on the left anterior chest wall. Abdomen: Soft, nontender. Bowel sounds present. Extremities: No pedal edema. There are some chronic skin changes on the left lower extremity from previous multiple orthopedic surgeries. The right hip has a dressing over the lateral aspect from the surgery. The patient is neurovascularly intact on the right side. Central nervous system: Patient is awake, alert, oriented. There is no focal neurological deficit. LABORATORY DATA: Hemoglobin is 9.0. Chemistry is completely within normal range. IMAGING STUDIES: No imaging studies for today. ASSESSMENT: 1. Status post fall resulting into a right intertrochanteric fracture. Patient is status post open reduction, internal fixation with right trochanteric femoral nailing. This was done by Dr. Helton. Today is day 1 postoperative. She seems to be doing remarkably well. Physical therapy has evaluated her today. She was able to do 10 feet with moderate assistance with front wheel walker. 2. History of coronary artery disease, status post coronary artery bypass graft and multiple stents. 3. Status post pacemaker and automatic implantable cardioverter defibrillator. 4. Right upper lobe adenocarcinoma noted. 5. History of atrial fibrillation. 6. Diabetes mellitus. PLAN: So in general, I think Ms. Treviño is doing well. We are going to continue controlling her other comorbidities. Physical therapy will continue working with her. Per the social work note, fax has been sent to [facility] in search of a bed. DISPOSITION: Pending rehab bed. cc: Stan Rankin MD
[2019-02-13] MEDS: NS 1,000 ML IV SCH (15:23)
[2019-02-13] MEDS: KLOR-CON PO SCH (21:05)
[2019-02-14] MEDS: DILAUDID IV PRN ×2 (03:40→11:48)
[2019-02-14] MEDS: LOVENOX SUBQ SCH (06:09)
[2019-02-14] MEDS: OXY IR PO PRN ×4 (06:11→21:47)
[2019-02-14] MEDS: HUMALOG SUBQ SCH ×4 (07:00→21:55)
[2019-02-14 07:08] LABS: HEMATOCRIT 32.5 % (37.0-47.0); HEMOGLOBIN 9.9 g/dL (12.0-16.0)
[2019-02-14] MEDS: ENTRESTO 24 MG-26 MG TABLET PO SCH ×2 (09:00→22:01)
[2019-02-14] MEDS: PROTONIX PO SCH ×2 (09:18→22:01)
[2019-02-14] MEDS: MINOCIN PO SCH ×2 (09:18→21:55)
[2019-02-14] MEDS: RANEXA PO SCH ×2 (09:19→21:48)
[2019-02-14] MEDS: KEPPRA PO SCH ×2 (09:19→21:48)
[2019-02-14] MEDS: LASIX PO SCH ×2 (09:19→21:48)
[2019-02-14] MEDS: VITAMIN D PO SCH (09:19)
[2019-02-14] MEDS: LIVALO PO SCH (09:19)
[2019-02-14] MEDS: LEVAQUIN PO SCH (09:20)
[2019-02-14] MEDS: VITAMIN B-12 PO SCH (09:21)
[2019-02-14] MEDS: PERIDEX MT SCH ×2 (09:21→21:49)
[2019-02-14] MEDS: FERROUS SULFATE PO SCH (09:21)
--- NOTE | 2019-02-14 09:37 | ORTHOPAEDICS PROGRESS NOTE ---
DATE: 02/14/2019 SUBJECTIVE: No acute events overnight. Patient is doing okay. She ambulated 10 feet with physical therapy yesterday. She reports not having much of an appetite this morning, but was able to eat last night. Denies any nausea or vomiting. OBJECTIVE: Hematocrit is 33.Extremities: Examination of right lower extremity shows surgical dressing to be clean, dry, intact. Thigh and calf soft and compressible. Minimal pain with log roll of the hip. Neurovascularly intact. ASSESSMENT: A 73-year-old female status post right hip closed reduction intramedullary nailing, postoperative day 2. PLAN: 1. Patient can continue to be weightbearing as tolerated right lower extremity. Physical therapy to mobilize with a walker. 2. Ice to right thigh p.r.n. pain. 3. Lovenox DVT prophylaxis. 4. I appreciate hospitalist's recommendations. 5. Disposition. Per primary team. Social Work is currently working on rehab placement in [place]. She will follow up with Dr. Enriquez 2 weeks after discharge for wound check and x-rays. [facility]
--- NOTE | 2019-02-14 14:20 | PROGRESS NOTE ---
DATE: 02/14/2019 SUBJECTIVE: This morning Ms. Treviño refers to be doing fairly okay, no new complaints. OBJECTIVE: Vital signs: Blood pressure is 116/62, pulse of 70, respirations 18, temperature 98.4 degrees. General: Ms. Treviño is a 73-year-old female, she is in bed, in no distress. HEENT: Mucosa is pink and moist. Anicteric. Acyanotic. Neck: Supple. Chest: Good air entry bilaterally. There were no crepitations, no rhonchi. Cardiovascular: Regular rate and rhythm. There is a pacemaker generator on the left anterior chest wall. GI: Abdomen was soft, nontender. Bowel sounds present. Extremities: No pedal edema. There are some chronic ischemic changes on the left lower extremity from previous multiple orthopedic surgeries. The right hip has a dressing over the lateral aspect from the recent surgery. It looks clean. The patient is neurovascularly intact on the right side. RIVETER PNEUMATIC: Patient is awake, alert. No focal deficit. DATA: Laboratory: Hemoglobin is 9.9. Physical therapy notes show the patient was evaluated today. Apparently, she did not use a walker correctly and she just lets go off it and grabs onto the bed rails. She required maximal cues for safe and correct use of the walker. Therapy was abruptly discontinued because of pain. ASSESSMENT: 1. Status post fall resulting into a right intertrochanteric fracture. Patient is status post closed reduction, internal fixation with right trochanteric femoral nail. Today is day 2 postop, the patient doing well. 2. History of coronary artery disease, status post coronary artery bypass grafting with multiple stents. The patient is currently asymptomatic. 3. Status post pacemaker and automated implantable cardioverter defibrillator. 4. Right upper lobe adenocarcinoma, noted. 5. History of atrial fibrillation, currently rate controlled. 6. Diabetes mellitus, controlled on insulin regimen. cc: Stan Rankin MD
[2019-02-14] MEDS: KLOR-CON PO SCH (21:48)
[2019-02-15] MEDS: OXY IR PO PRN ×7 (03:03→21:52)
[2019-02-15] MEDS: XARELTO PO SCH (05:52)
[2019-02-15 06:36] LABS: HEMATOCRIT 28.1 % (37.0-47.0); HEMOGLOBIN 8.9 g/dL (12.0-16.0); MCH 29.5 PG (27-31); MCHC 31.7 g/dL (33-37); RBC 3.02 XMIL (4.2-5.4); RDW 16.6 % (11.5-14.5); WBC 6.23 X1000 (4.8-10.8)
[2019-02-15] MEDS: HUMALOG SUBQ SCH ×4 (06:40→21:51)
[2019-02-15 07:00] LABS: AGAP 12; BUN 15 mg/dL (8-22); CALCIUM 8.4 mg/dL (8.8-10.2); CHLORIDE 101 mmol/L (98-107); COSMO 280; CREATININE 0.8 mg/dL (0.5-0.9); ESTIMATED GFR > 60; GLUCOSE 100 mg/dL (70-104); PHOSPHORUS 3.2 mg/dL (2.7-4.5); POTASSIUM 3.5 mmol/L (3.5-5.1); SODIUM 140 mmol/L (136-145); TCO2 27 mmol/L (25-35)
[2019-02-15] MEDS: RANEXA PO SCH ×2 (09:07→21:56)
[2019-02-15] MEDS: MINOCIN PO SCH (09:07)
[2019-02-15] MEDS: LEVAQUIN PO SCH (09:07)
[2019-02-15] MEDS: VITAMIN B-12 PO SCH (09:07)
[2019-02-15] MEDS: PROTONIX PO SCH ×2 (09:08→21:56)
[2019-02-15] MEDS: FERROUS SULFATE PO SCH (09:08)
[2019-02-15] MEDS: VITAMIN D PO SCH (09:08)
[2019-02-15] MEDS: LIVALO PO SCH (09:08)
[2019-02-15] MEDS: LASIX PO SCH ×2 (09:08→21:55)
[2019-02-15] MEDS: ENTRESTO 24 MG-26 MG TABLET PO SCH ×2 (09:09→21:51)
[2019-02-15] MEDS: KEPPRA PO SCH ×2 (09:09→21:55)
[2019-02-15] MEDS: PERIDEX MT SCH ×2 (09:10→21:55)
--- NOTE | 2019-02-15 12:44 | PROGRESS NOTE ---
DATE: 02/15/2019 SUBJECTIVE: This morning, Ms. Treviño refers to be doing fairly okay. was at the bedside at the time of the encounter. She did, however, complain of generalized pain and she did also say that she is normally on a chronic pain medicine at home. OBJECTIVE: Vital Signs: Blood pressure is 128/57, pulse of 85, respirations are 18, temperature is 98.2 degrees. General Examination: Ms. Treviño is a 73-year-old, female. She is in bed. No distress. HEENT: Mucosa is pink and moist. Anicteric. Acyanotic. Neck: Supple. Chest: Good air entry bilaterally. There were no crepitations, no rhonchi. Cardiovascular: Regular rate and rhythm. There is a pacemaker generator on the left anterior chest wall. There is also an old sternotomy scar on the anterior chest wall. GI: Abdomen was soft, nontender. Bowel sounds present. Extremities: No pedal edema. Some chronic changes in the left lower extremity from previous orthopedic surgeries. There is a dressing over the right hip from the recent surgery. It looks clean. LABORER/GRADE CHECK: The patient is awake, alert, and oriented. Laboratory Data: Hemoglobin is 8.9, platelet count of 104,000. Chemistry is also reviewed, all normal. ASSESSMENT: 1. Status post fall, resulting in a right intertrochanteric fracture. The patient is status post closed reduction and internal fixation, right trochanteric femoral nailing. Today is day 3. 2. History of coronary artery disease, status post coronary artery bypass graft with multiple stents. The patient is currently asymptomatic. 3. Status post pacemaker and automatic implantable cardioverter defibrillator. 4. Right upper lobe adenocarcinoma. The patient is aware. 5. History of atrial fibrillation, currently rate controlled. 6. Diabetes mellitus, controlled. 7. Chronic Levaquin therapy due to previous orthopedic hardware infection. Patient follows up with an infectious disease physician in [place]. 8. Disposition, still pending rehab placement. cc: Stan Rankin MD
--- NOTE | 2019-02-15 14:33 | ORTHOPAEDICS PROGRESS NOTE ---
DATE: 02/15/2019 SUBJECTIVE: No acute events overnight. Patient was evaluated by physical therapy yesterday, but did not use the walker correctly and was unable to ambulate secondary to pain. No other complaints. She tolerated a diet. OBJECTIVE: Hematocrit 28, white count 6. Extremities: Examination of the right lower extremity shows surgical incisions to be clean, dry, intact with jorge in place. Thigh and calf soft and compressible. Neurovascularly intact. ASSESSMENT: 73-year-old female status post closed reduction intramedullary nailing of right intertrochanteric femur fracture, postop day 3. PLAN: 1. Patient can be weightbearing as tolerated right lower extremity. Physical therapy to mobilize with rolling walker. 2. Xarelto for DVT prophylaxis. 3. Ice to right lower extremity as needed for pain. 4. Appreciate hospitalist recommendations. DISPOSITION: Perr primary team. Patient is planning on being discharged to [facility] for rehab when bed available. She will follow up with Dr. Helton in 10 to 14 days for wound check and x-rays.
[2019-02-15] MEDS: KLOR-CON PO SCH (21:55)
[2019-02-16] MEDS: OXY IR PO PRN ×4 (03:34→14:06)
[2019-02-16] MEDS: XARELTO PO SCH (06:40)
[2019-02-16] MEDS: HUMALOG SUBQ SCH ×2 (07:07→11:25)
[2019-02-16 07:42] VITALS: BP 134/66
[2019-02-16] MEDS: PERIDEX MT SCH (09:30)
[2019-02-16] MEDS: MINOCIN PO SCH (09:31)
[2019-02-16] MEDS: VITAMIN D PO SCH (09:31)
[2019-02-16] MEDS: ENTRESTO 24 MG-26 MG TABLET PO SCH (09:31)
[2019-02-16] MEDS: FERROUS SULFATE PO SCH (09:31)
[2019-02-16] MEDS: VITAMIN B-12 PO SCH (09:32)
[2019-02-16] MEDS: KEPPRA PO SCH (09:32)
[2019-02-16] MEDS: LEVAQUIN PO SCH (09:32)
[2019-02-16] MEDS: RANEXA PO SCH (09:33)
[2019-02-16] MEDS: LASIX PO SCH (09:33)
[2019-02-16] MEDS: LIVALO PO SCH (09:33)
[2019-02-16] MEDS: PROTONIX PO SCH (09:33)
--- NOTE | 2019-02-16 12:07 | DISCHARGE SUMMARY ---
ADMISSION DATE: 02/11/2019 DISCHARGE DATE: 02/16/2019 DISPOSITION: To [facility]. CONSULTATIONS DURING THIS ADMISSION: Orthopedics was consulted. Patient was seen by Dr. Helton, followed up by Dr. Enriquez. INVASIVE PROCEDURES DONE DURING THIS ADMISSION: A right trochanteric femoral nailing was done by Dr. Helton on 02/12/2019. IMAGING STUDIES OF SIGNIFICANCE: 1. A pelvic x-ray was done which showed a right intertrochanteric fracture of the femur. 2. Chest x-ray showed increasing postobstructive pneumonitis versus neoplastic changes in the right upper lobe. 3. A CT scan of the chest shows stable right upper lobe mass, cardiomegaly with pulmonary edema, prominent atherosclerosis, and right upper lobe infiltrate. The patient did have an FNA done October of this year which did show that the right upper lobe is an adenocarcinoma. ADMISSION DIAGNOSES: 1. Right intertrochanteric femur fracture. 2. Pneumonitis. 3. Seizure disorder. 4. Coronary artery disease. 5. Atrial fibrillation with pacemaker. 6. Diabetes mellitus. DISCHARGE DIAGNOSES: 1. Status post fall resulting in a right intertrochanteric fracture. The patient is status post closed reduction and internal fixation with an intertrochanteric nail. 2. History of coronary artery disease, status post coronary artery bypass graft with multiple stents. The patient is currently asymptomatic. 3. Status post pacemaker and automatic implantable cardioverter defibrillator. 4. Right upper lobe adenocarcinoma. 5. History of atrial fibrillation. 6. Diabetes mellitus. 7. Chronic Levaquin therapy due to previous orthopedic hardware infections. The patient follows up with an infectious disease specialist in [facility]. DISCHARGE MEDICATIONS: 1. Potassium chloride. 2. Lasix 40 mg b.i.d. 3. Cholecalciferol 2000 units p.o. daily. 4. Levofloxacin 125 p.o. daily. 5. Minocycline 100 mg p.o. daily. 6. Livalo 2 mg p.o. at bedtime. 7. Entresto 1 tablet b.i.d. 8. Keppra 500 b.i.d. 9. Pantoprazole 40 mg b.i.d. 10. Ranexa 1000 mg b.i.d. 11. Famotidine 40 mg b.i.d. 12. Vitamin B12 at 1000 mcg p.o. daily. 13. Iron sulfate 325 p.o. daily. 14. Rivaroxaban 10 mg p.o. daily. 15. Oxycodone 10 mg p.o. q.3 p.r.n. PRESENTING COMPLAINT: Fall with hip pain. HISTORY OF PRESENTING COMPLAINT: Ms. Treviño is a 73-year-old, female who has a history of coronary artery disease, status post CABG, also atrial fibrillation, status post pacemaker and AICD, has multiple stents. Came into the emergency department after she sustained a mechanical fall resulting into right hip pain. Upon presenting, she was evaluated including imaging studies which revealed a right intertrochanteric femur fracture. She was admitted for further medical care. HOSPITAL STAY: Ms. Treviño was admitted to the medical floor. She was hydrated well. Pain was managed. Orthopedics was consulted for the fracture. Patient was seen and evaluated by Dr. Helton. Recommendation for surgical intervention was made. Ms. Treviño successfully underwent right trochanteric femoral nailing on 02/12/[address] Helton. Postoperatively, she continues to do well. She was evaluated on multiple occasions by physical therapy including the where she was able to do a few steps. This morning, Ms. Treviño is seen sitting up in a chair. She refers to be doing well. She has been tolerating her diet. She denies any new complaint except for the pains at the surgical site. On her physical exam, her current vitals, blood pressure is 134/66, pulse of 71, respirations are 17, temperature is 98.0 degrees, patient is saturating 100% on room air. Her physical exam for most part is unremarkable. The surgical incision on the right hip looks remarkably clean. It is well affronted with clips. There is no bleeding. We think Ms. Treviño is clinically stable to be transferred to the rehab to continue with her physical uatsdin. All the discharge instructions have been discussed with her. The was at the bedside at the time of the encounter. Both voiced understanding. Time spent for discharge is 38 minutes. cc: MD Fabián King MD
== END 2019-02-16 14:42 | DRG 481 ==
LOC: SUPCPDRO → ED 16:08 → 4N 21:29 → SUATTDRO 21:29
PROVIDERS: ATTEND Internal Medicine